=== PATIENT | male | born 1945 | race Caucasian/White ===

== ENCOUNTER → 2017-12-12 | Day surgery (SDC) | payer OTHER ==
[2017-12-08 11:09] VITALS: Ht 182.9 cm; Wt 118.2 kg
[~2017-12-12] VITALS: Ht 182.9 cm; Wt 118.2 kg
[~2017-12-12] MED LIST: AMLO-114 PO; ASPCH81X PO; ATOR-24 PO; ATROPINE SULFATE 0.1 MG/ML 5ML SYR IV PRN; CETI10TA84 PO; COEN100C7 PO; DEXAMETHASONE SOD INJ 4 MG/ML VIAL ONE; EpHEDrine SULFATE INJ 50 MG/ML AMP IV PRN; FENTANYL CITRATE INJ 50 MCG/1 ML 2 ML VIAL IV PRN; FENTANYL CITRATE INJ 50 MCG/1 ML 2 ML VIAL ONE; GLUCTAB7 PO; HYZ/10015 PO; INSDGI SC; KETOROLAC TROMETHAMINE 30 MG/ML VIAL ONE; LACTATED RINGER'S 1000ML 1,000 ML IV SCH; LIDOCAINE HCL 2% 2 ML VIAL (20MG/ML) ONE; MONT1TAB3 PO; NVLGI/PEN SC; OMEG10007 PO; ONDANSETRON INJ 2 MG/ML 2 ML VIAL IV PRN; ONDANSETRON INJ 2 MG/ML 2 ML VIAL ONE; OXYC-57 PO; PROPOFOL IV EMULSION 10 MG/ML 20 ML VIAL IV ONE; SEMA2INJ SC; TAMS0.4C38 PO; [UNRECOGNIZED DRUG - OTHER] PO
--- NOTE | 2017-12-12 07:56 | History and Physical: Surg Cnt ---
History & Physical Date Dec 12, 2017. Chief Complaint right kidney stone History of Present Illness The patient is a 72 year old male with right kidney stone. It is round 1mm diameter and in the renal pelvis. He has considered treatment options and selects stone treatment with right ESWL. Past Medical/Surgical History Medical Problems: (1) Diplopia (2) DM (diabetes mellitus) (3) HTN (hypertension) (4) Nephrolithiasis Additional History Hepatic Disease: No Endocrine Disorder: Yes (DM) Hypertension: Yes Heart Disease: Yes Bleeding Tendencies: No Infectious Diseases: No Allergies Coded Allergies: NO KNOWN DRUG ALLERGIES (Verified Allergy, Unknown, ., 12/12/17) Cat Dander (Verified Adverse Reaction, Mild, WATERY EYES, 12/12/17) Home Medications Scheduled Amlodipine (Norvasc), 10 MG PO QPM Aspirin (Aspirin Chewable), 81 MG PO QPM Atorvastatin (Lipitor), 40 MG PO QAM Cetirizine (Zyrtec), 10 MG PO QAM Coenzyme Q10 (Ubidecarenone) (Coq10), 1 CAP PO 3XWK Fish Oil ([place]-3), 1 CAP PO BID Wwnfwjptrim-Gquapuultqe-Nwt C- (Glucosamine Chondroitin), 2 TAB PO QPM Hctz/Losartan (Hyzaar 25MG/100MG), 1 TAB PO QAM Insulin Aspart (Novolog Flexpen), 1 DOSE SC TID Insulin Glargine (Lantus), 80 UNITS SC BID Semaglutide (Ozempic), 0.25 MG SC WK [Chromium Synergy], 1 CAP PO 3XWK Scheduled PRN Montelukast Sodium (Singulair), 10 MG PO DAILY PRN for PRN Physical Examination Skin: warm/dry Eyes: normal inspection Neck: trachea midline Respiratory/Chest: lungs clear, normal breath sounds, no respiratory distress Cardiovascular: regular rate, rhythm, no edema Extremities: normal inspection, + pertinent finding (no edema) Neurologic/Psych: alert, oriented x 3 Diagnosis right kidney stone ASA Classification: ASA Class III Plan of Treatment Plan right ESWL scds
--- NOTE | 2017-12-12 09:08 | [facility] Operative Report ---
Operative Report Operative Date Dec 12, 2017. Pre-Operative Diagnosis Right Renal Calculus Post-Operative Diagnosis Same Procedure(s) Performed Right Extracorporeal Shock Wave Lithotripsy Surgeon Dr. Unique Howard Pediatrician Surgeon(s) None Estimated Blood Loss 0 Findings radio-opaque 11mm round renal pelvis stone Fluids 600mL Specimens None Drains None Anesthesia Type General Complication(s) none Disposition yes Recovery Room / PACU Indications right renal pelvis stone growing over time. He opted for ESWL treatment Description of Procedure Patient was given general LMA anesthesia and was placed supine on the OR table. Using biplanar fluoro his 11mm right renal pelvis stone was positioned in the focal zone. We delivered 2500 shocks to the stone. We observed a 2 minute rest after the first 200 shocks. The stone appeared to broaden and lighten through the course of treatment. He tolerated procedure well and transferred to ercovery room in good condition. Plan: home today strain urine flomax daily oral pain meds as needed KUB in one month I attest to the content of the Intraoperative Record and any orders documented therein. Any exceptions are noted below.
--- NOTE | 2017-12-12 09:12 | Discharge Instructions ---
Discharge Instructions Date of Service Dec 12, 2017. Admission Reason for Admission: Right Kidney Stone Discharge Discharge Diagnosis / Problem: right kidney stone Discharge Goals Goal(s): Improve disease control Activity Recommendations Activity Limitations: resume your previous activity Lifting Limitations: none Exercise/Sports Limitations: as tolerated May Resume Sexual Activity: when tolerated Shower/Bathe: no limitations Driving or Machine Use: resume 1 day after discharge . Instructions / Follow-Up Instructions / Follow-Up strain urine until you collect a stone specimen for analysis take flomax daily for 2 weeks to ease stone fragment passage use ibuprofen for mild to moderate pain and narcotic for severe pain urine will be bloody for a few days We will check an x-ray in one month Current Hospital Diet Patient's current hospital diet: Discharge Diet Recommended Diet: Diabetes Type 2 Diet Fluid Restriction: None Procedures Procedures Performed: Right Extracorporeal Shock Wave Lithotripsy Pending Studies Studies pending at discharge: no Medical Emergencies . Who to Call and When: Medical Emergencies: If at any time you feel your situation is an emergency, please call 911 immediately. . Non-Emergent Contact Non-Emergency issues call your: Urologist ([phone] ) Call Non-Emergent contact if: temperature is above 100.5, your pain is not controlled . . "Provider Documentation" section prepared by Rhea Howard. . [place] Drug Monitoring Program Search Results: patient reviewed within database, no issues identified
[2017-12-12 10:03] VITALS: TEMP 36.3
--- NOTE | 2017-12-12 10:26 | Anesthesiology Progress Note ---
Anesthesia Post Op Note Date & Time Dec 12, 2017 at 10:26 Vital Signs Pain Intensity: 0 Vital Signs Past 12 Hours Date Time Temp Pulse Resp B/P (MAP) Pulse Ox O2 Delivery O2 Flow Rate FiO2 12/12/17 10:03 36.3 71 16 161/84 (109) 94 Room Air 12/12/17 09:55 68 15 137/67 94 12/12/17 09:55 36.4 71 12 137/67 96 Room Air 12/12/17 09:55 69 15 12/12/17 09:51 144/75 12/12/17 09:50 70 13 12/12/17 09:50 69 13 96 12/12/17 09:45 67 19 168/83 100 12/12/17 09:45 67 19 12/12/17 09:40 67 17 12/12/17 09:40 67 17 145/89 99 12/12/17 09:36 139/82 12/12/17 09:35 66 20 12/12/17 09:35 65 20 100 12/12/17 09:30 68 17 12/12/17 09:30 68 17 115/103 98 12/12/17 09:25 69 16 12/12/17 09:25 68 16 151/80 98 12/12/17 09:20 19 12/12/17 09:20 74 19 155/72 12/12/17 09:15 67 17 161/81 99 12/12/17 09:15 68 17 12/12/17 09:12 36.5 73 16 167/89 96 Mask 6 12/12/17 09:10 73 12/12/17 09:10 73 167/89 96 12/12/17 07:37 36.8 67 16 171/88 (115) 96 Room Air Notes Mental Status: alert / awake / arousable, participated in evaluation Pt Amnestic to Procedure: Yes Nausea / Vomiting: adequately controlled Pain: adequately controlled Airway Patency, RR, SpO2: stable & adequate BP & HR: stable & adequate Hydration State: stable & adequate Anesthetic Complications: no major complications apparent
[2017-12-12 10:35] VITALS: BP 148/83; PULSE 63; O2SAT 95
== END | disposition home or self-care (01) ==
LOC: X.SURG 07:00
PROVIDERS: ATTEND Urology
DX: N20.0 Calculus of kidney (principal); I10 Essential (primary) hypertension; E11.9 Type 2 diabetes mellitus without complications; G47.33 Obstructive sleep apnea (adult) (pediatric); M19.90 Unspecified osteoarthritis, unspecified site; Z79.4 Long term (current) use of insulin; Z79.82 Long term (current) use of aspirin; Z79.899 Other long term (current) drug therapy; Z85.46 Personal history of malignant neoplasm of prostate

== ENCOUNTER 2018-02-06 09:50 | Emergency (ER) | payer OTHER ==
[~2018-02-06] VITALS: Ht 182.9 cm; Wt 120.6 kg
[~2018-02-06 09:50] MED LIST changes: -ATROPINE SULFATE 0.1 MG/ML 5ML SYR IV PRN; -DEXAMETHASONE SOD INJ 4 MG/ML VIAL ONE; -EpHEDrine SULFATE INJ 50 MG/ML AMP IV PRN; -FENTANYL CITRATE INJ 50 MCG/1 ML 2 ML VIAL IV PRN; -FENTANYL CITRATE INJ 50 MCG/1 ML 2 ML VIAL ONE; -KETOROLAC TROMETHAMINE 30 MG/ML VIAL ONE; -LACTATED RINGER'S 1000ML 1,000 ML IV SCH; -LIDOCAINE HCL 2% 2 ML VIAL (20MG/ML) ONE; -ONDANSETRON INJ 2 MG/ML 2 ML VIAL IV PRN; -ONDANSETRON INJ 2 MG/ML 2 ML VIAL ONE; -PROPOFOL IV EMULSION 10 MG/ML 20 ML VIAL IV ONE; -SEMA2INJ SC; -TAMS0.4C38 PO
[2018-02-06 09:52] VITALS: TEMP 37.2; Ht 182.9 cm; Wt 120.6 kg
[2018-02-06] MEDS ORDERED: HYDROmorphone INJ 0.5 MG/0.5 ML SYR IV STA (10:05)
[2018-02-06] MEDS ORDERED: ONDANSETRON INJ 2 MG/ML 2 ML VIAL IV STA (10:05)
[2018-02-06] MEDS ORDERED: ACETAMINOPHEN 500 MG TAB PO STA (10:05)
[2018-02-06] MEDS ORDERED: KETOROLAC TROMETHAMINE 30 MG/ML VIAL IV STA (10:05)
--- NOTE | 2018-02-06 10:09 | EMERGENCY ROOM VISIT NOTE ---
History Report prepared by Rebeca: Willow Tamez Under the Supervision of: Dr. Tigre Barksdale M.D. First contact with patient: 09:58 Chief Complaint: KIDNEY STONE Stated Complaint: KIDNEY STONE History of Present Illness The patient is a 72 year old white male with a past medical history of Diplopia , DM, HTN, Nephrolithiasis who presents to the ED with a cc of worsening right sided flank pain due to a kidney stone beginning at 0300 this morning. Negative fevers, chills, or blood in his urine. He states he had a lithotripsy done at the end of November by Dr. Howard and she found an 11 mm kidney stone. He went to a follow up a appointment which found he had 15 to 18 small stones and he believes he has passed many of them. However, recently his right sided flank pain has been constant and he describes it as a pressure. He took 3 Aleve which alleviated his pain. The patient states he has been constipated for the past week. Source of History: patient Onset: 0300 this morning Position: other (right flank) Quality: pressure Timing: constant Modifying Factors (Relieving): other (Aleve) Associated Symptoms: No fevers, No chills, No urinary symptoms (blood in his urine) Review of Systems See HPI for pertinent positives and negatives. A total of ten systems were reviewed and were otherwise negative. Past Medical & Surgical Medical Problems: (1) Diplopia (2) DM (diabetes mellitus) (3) HTN (hypertension) (4) Nephrolithiasis Family History Patient reports no known family medical history. Social History Smoking Status: Never Smoker Smokeless Tobacco Use: No Alcohol Use: none Drug Use: none Marital Status: Housing Status: lives with family Occupation Status: retired Current/Historical Medications Scheduled Amlodipine (Norvasc), 10 MG PO QPM Aspirin (Aspirin Chewable), 81 MG PO QPM Atorvastatin (Lipitor), 40 MG PO QAM Cetirizine (Zyrtec), 10 MG PO QAM Fish Oil ([place]-3), 1 CAP PO BID Zhnmhgdrmvw-Rtglirozeow-Keo C- (Glucosamine Chondroitin), 2 TAB PO QPM Hctz/Losartan (Hyzaar 25MG/100MG), 1 TAB PO QAM Insulin Aspart (Novolog Flexpen), 1 DOSE SC TID Insulin Glargine (Lantus), 75 UNITS SC BID Sertraline (Zoloft), 25 MG PO DAILY Spironolactone (Spironolactone), 12.5 MG PO DAILY Tamsulosin HCl (Tamsulosin HCl), 1 CAP PO DAILY Tamsulosin Hcl (Flomax), 0.4 MG PO DAILY Scheduled PRN Montelukast Sodium (Singulair), 10 MG PO DAILY PRN for PRN Oxycodone Immediate Rel Tab (Roxicodone Ir), 5 MG PO Q6H PRN for Pain Allergies Coded Allergies: Avocado (Verified Allergy, Severe, "Throat closes up", 02/06/18) Physical Exam Vital Signs Date Time Temp Pulse Resp B/P (MAP) Pulse Ox O2 Delivery O2 Flow Rate FiO2 02/06/18 12:10 68 18 140/73 96 Room Air 02/06/18 10:59 73 18 138/68 95 Room Air 02/06/18 09:52 37.2 96 20 159/87 97 Room Air Physical Exam GENERAL: Awake, alert, well-appearing, NAD. Obese. HENT: Normocephalic, atraumatic. EYES: Normal conjunctiva. Sclera non-icteric. PERRL. No anisocoria. NECK: Supple. No nuchal rigidity. FROM. No CVA TTP. RESPIRATORY: CTAB, no rhonchi, wheezing, crackles CARDIAC: RRR, no MRG ABDOMEN: Soft, NTND, BS+ MSK: No chest wall TTP, no LE edema NEURO: GCS 15, CN 2-12 intact, moves all 4s on command SKIN: No rash or jaundice noted. Medical Decision & Procedures ER Provider Diagnostic Interpretation: Radiology results as stated below per my review and radiologist interpretation: KUB CLINICAL HISTORY: 72 years-old Male presenting with Flank pain, hematuria, history of kidney stones. TECHNIQUE: Single supine view of the abdomen was obtained. COMPARISON: CT from 09/22/2013. FINDINGS: Moderate stool burden in the right colon. Nonobstructive bowel gas pattern. No gross pneumoperitoneum. Multiple right renal calculi including a cluster at the lower pole less pronounced burden of calculi evident on the left. Possible proximal right ureteral calculus at the level of L3-4. No radiographic evidence of left ureteral calculus. Multiple calculi project over the region of the distal right ureter. These were not present on prior CT and are indeterminant, ureteral calculi are not excluded though atherosclerosis and phleboliths are also possible. Osseous structures normal. IMPRESSION: 1. Bilateral nephrolithiasis with a greater stone burden on the right. Suspected right ureteral calculus at the level of L3-4. Distal right ureteral calculi cannot be excluded. Further evaluation with CT to be considered as clinically appropriate. Electronically signed by: José Luis Roque M.D. 02/06/2018 11:02 AM Laboratory Results 02/06/18 10:05 Red Blood Count 4.32, Mean Corpuscular Volume 88.9, Mean Corpuscular Hemoglobin 31.9, Mean Corpuscular Hemoglobin Concent 35.9, Mean Platelet Volume 10.8, Neutrophils (%) (Auto) 70.0, Lymphocytes (%) (Auto) 21.7, Monocytes (%) (Auto) 6.0, Eosinophils (%) (Auto) 1.5, Basophils (%) (Auto) 0.5, Neutrophils # (Auto) 4.19, Lymphocytes # (Auto) 1.30, Monocytes # (Auto) 0.36, Eosinophils # (Auto) 0.09, Basophils # (Auto) 0.03 02/06/18 10:05 Test 02/06/18 10:05 02/06/18 10:15 White Blood Count 5.99 K/uL (4.8-10.8) Red Blood Count 4.32 M/uL (4.7-6.1) Hemoglobin 13.8 g/dL (14.0-18.0) Hematocrit 38.4 % (42-52) Mean Corpuscular Volume 88.9 fL (80-100) Mean Corpuscular Hemoglobin 31.9 pg (25-34) Mean Corpuscular Hemoglobin Concent 35.9 g/dl (32-36) Platelet Count 204 K/uL (130-400) Mean Platelet Volume 10.8 fL (7.4-10.4) Neutrophils (%) (Auto) 70.0 % Lymphocytes (%) (Auto) 21.7 % Monocytes (%) (Auto) 6.0 % Eosinophils (%) (Auto) 1.5 % Basophils (%) (Auto) 0.5 % Neutrophils # (Auto) 4.19 K/uL (1.4-6.5) Lymphocytes # (Auto) 1.30 K/uL (1.2-3.4) Monocytes # (Auto) 0.36 K/uL (0.11-0.59) Eosinophils # (Auto) 0.09 K/uL (0-0.5) Basophils # (Auto) 0.03 K/uL (0-0.2) RDW Standard Deviation 45.9 fL (36.4-46.3) RDW Coefficient of Variation 14.0 % (11.5-14.5) Immature Granulocyte % (Auto) 0.3 % Immature Granulocyte # (Auto) 0.02 K/uL (0.00-0.02) Anion Gap 7.0 mmol/L (3-11) Est Creatinine Clear Calc Drug Dose 50.6 ml/min Estimated GFR () 43.5 Estimated GFR (Non- 37.5 BUN/Creatinine Ratio 13.7 (10-20) Calcium Level 8.8 mg/dl (8.5-10.1) Chemistry Specimen Hemolysis Urine Color YELLOW Urine Appearance CLEAR (CLEAR) Urine pH 5.5 (4.5-7.5) Urine Specific [place] >= 1.030 (1.000-1.030) Urine Protein 2+ (NEG) Urine Glucose (UA) NEG (NEG) Urine Ketones NEG (NEG) Urine Occult Blood TRACE (NEG) Urine Nitrite NEG (NEG) Urine Bilirubin NEG (NEG) Urine Urobilinogen NEG (NEG) Urine Leukocyte Esterase NEG (NEG) Urine RBC 0-4 /hpf (0-4) Urine WBC 1-5 /hpf (0-5) Urine Epithelial Cells 5-10 /lpf (0-5) Urine Bacteria NEG (NEG) Urine Mucus PRESENT (NONE PRSENT) Laboratory results reviewed by me Medications Administered Medications (Trade) Dose Ordered Sig/Erlinda Route Start Time Stop Time Status Last Admin Dose Admin Ondansetron HCl (Zofran Inj) 4 mg NOW STAT IV 02/06/18 10:05 02/06/18 10:07 DC 02/06/18 10:22 4 MG Ketorolac Tromethamine (Toradol Inj) 30 mg NOW STAT IV 02/06/18 10:05 02/06/18 10:07 DC 02/06/18 10:24 30 MG Hydromorphone HCl (Dilaudid Inj) 0.5 mg NOW STAT IV 5/25/18 10:05 02/06/18 10:07 DC 02/06/18 10:25 0.5 MG Acetaminophen (Tylenol Tab) 1,000 mg NOW STAT PO 02/06/18 10:05 02/06/18 10:07 DC 02/06/18 10:26 1,000 MG ED Course 0958: The patient was evaluated in room B6. A complete history and physical exam was performed. 1111: I checked on the patient at this time. He is feeling better at this time. 1122: I talked to the OR nurse of Dr. Howard, Urology and she will pass along the message. 1155: Discussed the patient's case with Dr. Howard, Urology. She agrees with the plan of care and also agrees with adding Flomax. 1210: I reevaluated the patient. Discussed results and discharge instructions: He verbalized understanding and agreement. The patient is ready for discharge. Medical Decision The patient is a 72 year old white male with a past medical history of Diplopia , DM, HTN, Nephrolithiasis who presents to the ED with a cc of right sided flank pain due to a kidney stone beginning at 0300 this morning. Negative fevers , chills, or blood in his urine. Nursing notes reviewed. Ancillary studies and prior records reviewed. Differential diagnosis: Etiologies such as renal colic, appendicitis, diverticulitis, mesenteric ischemia, aortic pathology, infections, inflammatory bowel disease, PUD, biliary pathology, UTI, as well as others were entertained. Patient was seen and evaluated the bedside. Patient was complaining of worsening right-sided flank discomfort that radiates to the groin. Patient does have a prior history of a large kidney stone status post lithotripsy with [facility] completed back in November. Patient did have a follow-up and he stated that he had multiple small stones. Patient believes he has passed many. Patient did take some Aleve and some old oxycodone which he said did improve his discomfort. Patient denies any fevers chills. Patient is a questionable nausea but no vomiting. Patient did have blood work completed, KUB, urinalysis. Patient was given medications for symptom control. Patient's blood work showed normal white blood cell count. Patient does have some CKD which is fairly chronic as his most recent creatinine from several years ago was 1.6 today is 1.7. The patient's pain is much improved. No nausea no vomiting. The patient's KUB does show ureteral as well as nephrolithiasis. Patient was told of these findings. I did speak with the on- call urologist who agrees with the plan of care and tells them to try to pass these. Patient was given pain medication as well as Flomax for home. Patient was counseled on narcotics use. Patient was given strict follow-up, discharge, and return precautions. All questions were answered. Patient was deemed suitable for outpatient follow-up at this time. Patient agreed with the plan of care and was safely discharged home. Medication Reconcilliation Current Medication List: was personally reviewed by me Blood Pressure Screening Patient's blood pressure: Elevated blood pressure Blood pressure disposition: Elevated BP felt to be situational Consults Time Called: 1115 Consulting Physician: OR nurse of Dr. Howard Returned Call: 1122 I talked to the OR nurse of Dr. Howard and she will pass along the message. Additional Consults: Time Called: 1122 Consulted Physician: Dr. Howard, Urology Returned Call: 1155 Additional Comments: She agrees with the plan of care and also agrees with adding Flomax. Impression Primary Impression: Nephrolithiasis Additional Impressions: Renal colic Hypokalemia Right flank pain CKD (chronic kidney disease) stage 3, GFR 30-59 ml/min Scribe Attestation The scribe's documentation has been prepared under my direction and personally reviewed by me in its entirety. I confirm that the note above accurately reflects all work, treatment, procedures, and medical decision making performed by me. Departure Information Dispostion Home / Self-Care Prescriptions Oxycodone Immediate Rel Tab (ROXICODONE IR) 5 Mg Tab 5 MG PO Q6H Y for Pain, #15 TAB Prov: Tigre Barksdale M.D. 02/06/18 Tamsulosin Hcl (FLOMAX) 0.4 Mg Cap 0.4 MG PO DAILY for 30 Days, #30 CAP Prov: Tigre Barksdale M.D. 02/06/18 Referrals Elder Mirza M.D.(TASHIA) (PCP) Forms HOME CARE DOCUMENTATION FORM, IMPORTANT VISIT INFORMATION Patient Instructions Kidney Stones - [facility], Kidney Stones [facility], [facility] [place] Additional Instructions Please return to the emergency department if you have worsening or recurrent symptoms not amenable to at-home treatment. Please call for a follow-up appointment with her primary care physician. Please take your medications as prescribed. If you have other concerns and/or complaints please feel free to also call your primary care physician's office or return the ED for further evaluation, management, and treatment. You received narcotic or benzodiazepene medication while in the emergency room today. This is an addictive medication that may cause drowziness as well as constipation. Do not drive, operate heavy machinery, or drink alcohol under the influence of this medication. You may take tylenol 1000 mg every 6 hours as needed for pain/fever unless told by your physician to not take it or have liver problems. If you still have discomfort you may take the narcotic medication. Please be advised that these medications are habit forming, can make you sleepy, and can cause breathing issues. Do not use if you require your full attention. Take only as prescribed. Take your medications as prescribed. Please take your Flomax in the evening. Please call your urologist for a follow -up appointment. You have been examined and treated today on an emergency basis only. This is not a substitute for, or an effort to provide, complete comprehensive medical care. It is impossible to recognize and treat all injuries or illnesses in a single emergency department visit. It is therefore important that you follow up closely with [facility], your PCP, and/or your specialist(s). Call as soon as possible for an appointment. Thank you for your time and consideration. I look forward to speaking with you again soon. Please don't hesitate to call us if you have any questions. Problem Qualifiers
[2018-02-06 10:21] LABS: BASO % 0.5 %; BASO ABS # 0.03 K/uL (0-0.2); EOS % 1.5 %; EOS ABS # 0.09 K/uL (0-0.5); HEMATOCRIT 38.4 % (42-52); HEMOGLOBIN 13.8 g/dL (14.0-18.0); IG# 0.02 K/uL (0.00-0.02); LYMPH % 21.7 %; MEAN CELL VOLUME 88.9 fL (80-100); MEAN CORPUSCULAR HEMOGLOBIN 31.9 pg (25-34); MEAN CORPUSCULAR HGB CONC 35.9 g/dl (32-36); MEAN PLATELET VOLUME 10.8 fL (7.4-10.4); MONO ABS # 0.36 K/uL (0.11-0.59); NEUT ABS # 4.19 K/uL (1.4-6.5); PLATELET COUNT 204 K/uL (130-400); RED CELL DISTRIBUTION WIDTH SD 45.9 fL (36.4-46.3); WHITE BLOOD COUNT 5.99 K/uL (4.8-10.8)
[2018-02-06 10:39] LABS: CALCIUM 8.8 mg/dl (8.5-10.1); CREATININE 1.77 mg/dl (0.60-1.40); POTASSIUM 3.4 mmol/L (3.5-5.1)
[2018-02-06] MEDS ORDERED: SPR25 PO (10:48)
[2018-02-06] MEDS ORDERED: SERT25TA PO (10:48)
[2018-02-06] MEDS ORDERED: FLM4 PO (10:48)
--- NOTE | 2018-02-06 11:03 | DIAGNOSTIC IMAGING REPORT ---
KUB CLINICAL HISTORY: 72 years-old Male presenting with Flank pain, hematuria, history of kidney stones. TECHNIQUE: Single supine view of the abdomen was obtained. COMPARISON: CT from 09/22/2013. FINDINGS: Moderate stool burden in the right colon. Nonobstructive bowel gas pattern. No gross pneumoperitoneum. Multiple right renal calculi including a cluster at the lower pole less pronounced burden of calculi evident on the left. Possible proximal right ureteral calculus at the level of L3-4. No radiographic evidence of left ureteral calculus. Multiple calculi project over the region of the distal right ureter. These were not present on prior CT and are indeterminant, ureteral calculi are not excluded though atherosclerosis and phleboliths are also possible. Osseous structures normal. IMPRESSION: 1. Bilateral nephrolithiasis with a greater stone burden on the right. Suspected right ureteral calculus at the level of L3-4. Distal right ureteral calculi cannot be excluded. Further evaluation with CT to be considered as clinically appropriate. Electronically signed by: José Luis Roque M.D. 02/06/2018 11:02 AM Dictated Date/Time: 02/06/2018 10:58 AM
[2018-02-06] MEDS ORDERED: TAMS0.4C38 PO (12:09)
[2018-02-06] MEDS ORDERED: OXYC1TAB3 PO (12:09)
[2018-02-06 12:10] VITALS: BP 140/73; PULSE 68; O2SAT 96
[2018-02-08] MEDS ORDERED: SEMA2INJ SQ (13:07)
[2018-02-09] MEDS ORDERED: MRLP17X PO (13:45)
[2018-02-09] MEDS ORDERED: CLC100 PO (13:45)
== END 2018-02-06 12:23 | disposition home or self-care (01) ==
LOC: C.EDB 09:51
DX: N20.0 Calculus of kidney (principal); N23 Unspecified renal colic; E87.6 Hypokalemia; R10.9 Unspecified abdominal pain; N18.3 Chronic kidney disease, stage 3 (moderate); H53.2 Diplopia; E11.9 Type 2 diabetes mellitus without complications; I10 Essential (primary) hypertension; Z79.4 Long term (current) use of insulin; Z91.018 Allergy to other foods

== ENCOUNTER → 2018-04-09 | Outpatient (CLI) | payer OTHER ==
[~2018-04-09] MED LIST changes: -AMLO-114 PO; +AMLO10TA3 PO; -COEN100C7 PO; +FLM4 PO; +MULT-1093 PO; -OXYC-57 PO; +SEMA2INJ SQ; +SPIR25TA6 PO; -[UNRECOGNIZED DRUG - OTHER] PO
--- NOTE | 2018-04-09 14:54 | DIAGNOSTIC IMAGING REPORT ---
PELVIS WITHOUT CONTRAST (MRI) CLINICAL HISTORY: [facility] COMPARISON STUDY: CT of the abdomen and pelvis September 22, 2013. TECHNIQUE: Utilizing a 1.5 Shayna magnet and dedicated coil, multiplanar, multi echo imaging of the pelvis was performed without intravenous contrast. FINDINGS: Please note that this study was not performed to evaluate for the primary prostate carcinoma. Note is made of an apparent 1.4 cm T2 hypointense focus within the left lateral aspect of the peripheral zone at the level of the mid gland. The prostate is moderately enlarged with numerous well-circumscribed nodules within the transitional zone suggestive of BPH nodules. The hydrogel spacer is appropriately positioned. Thickness of the spacer at the level of the mid gland is 5 mm. The spacer is just to the right of midline but separates the rectum from the prostate gland most significantly at the level of the mid gland and base. No pelvic lymphadenopathy is identified. No suspicious osseous lesions are identified within visualized portions of the pelvis. IMPRESSION: 1. Appropriately positioned hydrogel spacer, as described above. 2. Moderate enlargement of the prostate gland. 3. Possible 1.4 cm T2 hypointense focus within the left aspect of the peripheral zone at the level the mid gland. This may reflect a prostate malignancy could be correlated with biopsy results. Electronically signed by: Dmitry Chi M.D. 04/09/2018 2:53 PM Dictated Date/Time: 04/09/2018 2:41 PM
--- NOTE | 2018-05-01 08:41 | CODING QUERY MEDICAL NECESSITY ---
SUPPORTING DIAGNOSIS NEEDED A supporting diagnosis is required for the test/procedure performed on this patient in order for us to be reimbursed by the patient's insurance. Please provide a supporting diagnosis for the following test/procedure listed below next to the test name along with your signature. *If there is no additional diagnosis for this patient that would support the following test/procedure please document that below next to the test/procedure. Test(s)/Procedure(s) that require a supporting diagnosis: DOS: 04/09/18 * PROSTATE MRI COMBO DIAGNOSIS: * MRI PELVIS WITHOUT CONTRAST DIAGNOSIS: Provider Signature: Date: Thank you Cassie Dupont [employer] Information Management Once completed, please kindly fax back to [phone] For questions please call [phone]
== END | disposition home or self-care (01) ==
LOC: C.MRIBC 13:21
PROVIDERS: ATTEND Physician Assistant Medical
DX: C61 Malignant neoplasm of prostate (principal)

== ENCOUNTER 2020-04-18 17:18 | Observation (INO) ==
[2020-04-18] MEDS ORDERED: PANTOprazole 80 MG in DEXTROSE 5% 100 ML IV ONE (17:35)
[2020-04-18] MEDS ORDERED: PANTOPRAZOLE BOLUS/DRIP 1 EA IV STA (17:35)
[2020-04-18] MEDS ORDERED: SODIUM CHLORIDE 0.9% 500 ML IV SCH (17:45)
[2020-04-18] MEDS ORDERED: PANTOprazole 40 MG in DEXTROSE 5% 100 ML IV SCH (17:51)
[2020-04-18 17:52] LABS: Basophils # (auto) 0.03 K/uL (0-0.2); Basophils % (auto) 0.4 %; Eosinophils # (auto) 0.17 K/uL (0-0.5); Eosinophils % (auto) 2.4 %; Hemoglobin 11.2 g/dL (14.0-18.0); Immature Granulocytes # (auto) 0.02 K/uL (0.00-0.02); Immature Granulocytes % (auto) 0.3 %; Lymphocytes # (auto) 0.69 K/uL (1.2-3.4); Lymphocytes % (auto) 9.6 %; Mean Corpuscular Hemoglobin 31.7 pg (25-34); Mean Corpuscular Hgb Conc 33.9 g/dL (32-36); Mean Corpuscular Volume 93.5 fL (80-100); Mean Platelet Volume 11.1 fL (7.4-10.4); Monocytes # (auto) 0.53 K/uL (0.11-0.59); Monocytes % (auto) 7.4 %; Neutrophils # (auto) 5.76 K/uL (1.4-6.5); Neutrophils % (auto) 79.9 %; Platelet Count 268 K/uL (130-400); RDW Coefficient of Variation 14.4 % (11.5-14.5); RDW Standard Deviation 48.6 fL (36.4-46.3); Red Blood Count 3.53 M/uL (4.7-6.1)
[2020-04-18 18:03] LABS: INR 1.1 (0.9-1.1); Partial Thromboplastin Time 28.4 Seconds (21.0-31.0); Prothrombin Time 11.1 Seconds (9.0-12.0)
[2020-04-18 18:17] LABS: Albumin Level 3.6 gm/dl (3.4-5.0); BUN Creatinine Ratio 14.7 (10-20); Creatinine Clr Calc Pharmacy 45.1 ml/min; Est GFR (African American) 40.1; Est GFR (Non-African American) 34.6; Potassium 4.5 mmol/L (3.5-5.1)
--- NOTE | 2020-04-18 18:25 | Emergency Department Note ---
Impression & Plan Rectal bleeding, Near syncope, Anemia ED Provider Note NAME: HILARY BACA AGE: 74 SEX: M : 1945 ARRIVES VIA: Walk-In INFORMANT: Patient, ED PROVIDER(S): Tigre Barksdale MD Chief Complaint: Rectal bleed HPI: States that he developed some rectal bleeding beginning last evening. The patient has had approximately 8 bouts today. The patient does take baby aspirin no blood thinning medications. The patient does have a prior history of likely radiation proctitis and did undergo an EGD and colonoscopy with the patient did have polypectomy and associated cauterization of some bleeding [address] Ariel Scherer. The patient does not complain of any abdominal pain nausea or vomiting. Patient denies symptoms of code including chest pain shortness of breath. The patient has had some mild weakness and fatigue. Patient reportedly had called his GI doctor who stated that the patient would se e him for a colonoscopy tomorrow but after further discussion with the patient's nurse hotline and they referred him here for further evaluation and treatment. No history of inflammatory bowel disease. Patient states that his polyps that were removed were not malignant. The patient had a likely radiation proctitis secondary to history of prostate cancer which the patient is currently in remission. ROS: See HPI for pertinent positives and negatives. A total of 10 systems were reviewed and otherwise negative. Past medical history: See below Surgical history: See below Social history: See below Physical Exam: GENERAL: Wearing a mask. NAD, non-toxic. EYE EXAM: Normal conjunctiva. PERRL, no anisocoria and EOM's grossly intact w/o pain. NECK: Supple, no nuchal rigidity, no adenopathy, non-tender. No signs of meningismus. LUNGS: Clear to auscultation. Normal chest wall mechanics. HEART: NSR, no MRG. ABDOMEN: Abdomen soft, non-tender, normo-active bowel sounds, no masses, no rebound or guarding. BACK: No CVA TTP. SKIN: No rashes and no bruising. UPPER EXTREMITIES: Upper extremities are grossly normal. LOWER EXTREMITIES: Grossly normal, no edema. NEURO EXAM: A&O x3, cranial nerves II-XII grossly intact, normal speech, moves all 4 extremities on command w/o issue. Differential diagnoses: Diverticulosis, AVM, coagulopathy, colitis, inflammatory bowel disease, malignancy, Amanda-Narvaez tear, esophagitis, peptic ulcer disease, variceal bleed, gastritis, epistaxis, fissure, hemorrhoids, as well as other pathologies. Course: Patient was seen and evaluated the bedside. Full history physical exam was performed. EKG: Indication: Fatigue Normal sinus rhythm, rate 83, normal intervals, normal axis, no obvious ST changes or T WI. No significant change from February 13, 2018. Imaging Studies: Radiology results as stated below per my review in the radiologist's interpretation: Cardiac monitoring: An order was placed for continuous cardiac monitoring. The monitor shows a rate of 98 with sinus rhythm. MDM: Patient does present with concern for rectal bleeding. Patient does have a mild drop in his hemoglobin from 12-11. The patient has virtually baseline kidney function. Clvms-ag-otmc glucose and glucose is slightly elevated but the patient does not have an anion gap. Patient did try and ambulate to the bathroom and had a near syncopal event. Given this and patient's current rectal bleeding believe the patient would benefit from observation and treatment and possible sigmoidoscopy versus colonoscopy in the morning. Patient family were agreeable to this plan of care. I did speak with Dr. Denise and the patient subsequently was admitted to the [facility] service. Past Med/Surg History Medical History DM (diabetes mellitus) (Chronic) HTN (hypertension) (Chronic) Nephrolithiasis (Chronic) Prostate cancer (Chronic 11/14/17) Social History Smoking Status: Never smoker Hx Alcohol Use: Yes Alcohol type: beer Hx Substance Use: No Preferred Language: Togolese Communication Ability: Effective Rehab Trainer Required: No Beliefs That Will Affect Care: None Current Living Situation: Family Other Information That Helps Us Care for You: No Feels Safe at Home: Yes Safety Concerns: Feels Safe At This Time Allergies Allergies Allergy/AdvReac Type Severity Reaction Status Date / Time avocado Allergy Severe "Throat Verified 04/18/20 20:20 closes up" cat dander Allergy Intermediate Sneezing Verified 04/18/20 20:20 Home Meds Home Medications Medication Instructions Recorded Confirmed amlodipine [Norvasc] 10 mg PO QPM 04/18/20 04/18/20 aspirin [Aspir-81] 81 mg PO QPM 04/18/20 04/18/20 atorvastatin [Lipitor] 40 mg PO QPM 04/18/20 04/18/20 cetirizine [Zyrtec] 5 mg PO DAILY 04/18/20 04/18/20 oppucttyjko-hbu-shivfzchg-vitC 1 cap PO QPM 04/18/20 04/18/20 [Glucosamine Complex-MSM] hydrochlorothiazide 25 mg PO QAM 04/18/20 04/18/20 insulin aspart U-100 [Novolog 20 unit SUBCUT .QBREAKFAST 04/18/20 04/18/20 Flexpen U-100 Insulin] insulin aspart U-100 [Novolog 25 unit SUBCUT BIDM 04/18/20 04/18/20 Flexpen U-100 Insulin] insulin glargine [Lantus U-100 80 unit SUBCUT QAM 04/18/20 04/18/20 Insulin] insulin glargine [Lantus U-100 90 unit SUBCUT QPM 04/18/20 04/18/20 Insulin] lisinopril 40 mg PO QAM 04/18/20 04/18/20 lorazepam [Ativan] 0.5 mg PO Q6 PRN 04/18/20 04/18/20 multivitamin 1 tab PO DAILY 04/18/20 04/18/20 omega 5-nkt-fil-fish oil [Fish Oil] 1 cap PO BID 04/18/20 04/18/20 spironolactone [Aldactone] 25 mg PO QPM 04/18/20 04/18/20 tamsulosin [Flomax] 0.4 mg PO QPM 04/18/20 04/18/20 venlafaxine 37.5 mg PO QPM 04/18/20 04/18/20 vitamin E 600 unit PO 3XWK 04/18/20 04/18/20 Results & Data (ED) Vital Signs Vital Signs - 24 hr 04/18/20 17:27 04/18/20 17:35 04/18/20 17:46 Temperature 37.3 C Temperature Source Oral Pulse Rate 98 H 85 Pulse Rate from SpO2 Sensor 86 Respiratory Rate 20 14 Blood Pressure 115/73 145/72 H Blood Pressure Mean 87 82 Pulse Oximetry 96 96 96 Oxygen Delivery Method Room Air Sepsis Recent Fever Within 48 Hours No Sepsis New/Unexplained Change in Mental Status No Sepsis Action Taken by Nursing No Action Required 04/18/20 18:30 04/18/20 19:04 04/18/20 19:15 Temperature Temperature Source Pulse Rate 83 64 62 Pulse Rate from SpO2 Sensor 82 64 64 Respiratory Rate 20 19 12 Blood Pressure 126/76 115/57 L 126/74 Blood Pressure Mean 92 70 86 Pulse Oximetry 94 96 94 Oxygen Delivery Method Sepsis Recent Fever Within 48 Hours Sepsis New/Unexplained Change in Mental Status Sepsis Action Taken by Nursing 04/18/20 19:30 04/18/20 19:45 04/18/20 20:00 Temperature Temperature Source Pulse Rate 63 66 71 Pulse Rate from SpO2 Sensor 65 67 74 Respiratory Rate 20 18 16 Blood Pressure 124/71 135/71 131/102 H Blood Pressure Mean 90 88 115 Pulse Oximetry 96 97 98 Oxygen Delivery Method Sepsis Recent Fever Within 48 Hours Sepsis New/Unexplained Change in Mental Status Sepsis Action Taken by Nursing 04/18/20 20:15 Temperature Temperature Source Pulse Rate 73 Pulse Rate from SpO2 Sensor 72 Respiratory Rate 19 Blood Pressure 142/81 H Blood Pressure Mean 94 Pulse Oximetry 97 Oxygen Delivery Method Sepsis Recent Fever Within 48 Hours Sepsis New/Unexplained Change in Mental Status Sepsis Action Taken by Correction Medications Current Medication List: was personally reviewed by me Laboratory Data Attestation: I reviewed the patient's lab results. Result diagrams: 04/18/20 17:42 04/18/20 17:42 Lab Results 04/18/20 04/18/20 04/18/20 Range/Units 17:42 17:42 17:42 WBC 7.20 (4.8-10.8) K/uL RBC 3.53 L (4.7-6.1) M/uL Hgb 11.2 L (14.0-18.0) g/dL Hct 33.0 L (42-52) % MCV 93.5 (80-100) fL MCH 31.7 (25-34) pg MCHC 33.9 (32-36) g/dL RDW Std Deviation 48.6 H (36.4-46.3) fL RDW Coeff of Richard 14.4 (11.5-14.5) % Plt Count 268 (130-400) K/uL MPV 11.1 H (7.4-10.4) fL Immature Gran % (Auto) 0.3 % Neut % (Auto) 79.9 % Lymph % (Auto) 9.6 % [place] % (Auto) 7.4 % Eos % (Auto) 2.4 % Baso % (Auto) 0.4 % Neut # (Auto) 5.76 (1.4-6.5) K/uL Lymph # (Auto) 0.69 L (1.2-3.4) K/uL [place] # (Auto) 0.53 (0.11-0.59) K/uL Eos # (Auto) 0.17 (0-0.5) K/uL Baso # (Auto) 0.03 (0-0.2) K/uL Immature Gran # (Auto) 0.02 (0.00-0.02) K/uL PT 11.1 (9.0-12.0) Seconds INR 1.1 (0.9-1.1) APTT 28.4 (21.0-31.0) Seconds PTT Ratio 1.0 Sodium (136-145) mmol/L Potassium (3.5-5.1) mmol/L Chloride (98-107) mmol/L Carbon Dioxide (21-32) mmol/L Anion Gap (3-11) BUN (7-18) mg/dl Creatinine (0.6-1.4) mg/dl Est Cr Clr Drug Dosing ml/min Est GFR ( Amer) Est GFR (Non-Af Amer) BUN/Creatinine Ratio (10-20) Glucose (70-99) mg/dl Calcium (8.5-10.1) mg/dl Magnesium (1.8-2.4) mg/dl Total Bilirubin (0.2-1) mg/dl AST (15-37) U/L ALT (12-78) U/L Alkaline Phosphatase (45-117) U/L Total Protein (6.4-8.2) gm/dl Albumin (3.4-5.0) gm/dl Globulin (2.5-4.0) gm/dl Albumin/Globulin Ratio (0.9-2) Blood Type A Positive Antibody Screen NEGATIVE 04/18/20 Range/Units 17:42 WBC (4.8-10.8) K/uL RBC (4.7-6.1) M/uL Hgb (14.0-18.0) g/dL Hct (42-52) % MCV (80-100) fL MCH (25-34) pg MCHC (32-36) g/dL RDW Std Deviation (36.4-46.3) fL RDW Coeff of Richard (11.5-14.5) % Plt Count (130-400) K/uL MPV (7.4-10.4) fL Immature Gran % (Auto) % Neut % (Auto) % Lymph % (Auto) % [place] % (Auto) % Eos % (Auto) % Baso % (Auto) % Neut # (Auto) (1.4-6.5) K/uL Lymph # (Auto) (1.2-3.4) K/uL [place] # (Auto) (0.11-0.59) K/uL Eos # (Auto) (0-0.5) K/uL Baso # (Auto) (0-0.2) K/uL Immature Gran # (Auto) (0.00-0.02) K/uL PT (9.0-12.0) Seconds INR (0.9-1.1) APTT (21.0-31.0) Seconds PTT Ratio Sodium 138 (136-145) mmol/L Potassium 4.5 (3.5-5.1) mmol/L Chloride 107 (98-107) mmol/L Carbon Dioxide 23 (21-32) mmol/L Anion Gap 8.0 (3-11) BUN 28 H (7-18) mg/dl Creatinine 1.87 H (0.6-1.4) mg/dl Est Cr Clr Drug Dosing 45.1 ml/min Est GFR ( Amer) 40.1 Est GFR (Non-Af Amer) 34.6 BUN/Creatinine Ratio 14.7 (10-20) Glucose 161 H (70-99) mg/dl Calcium 9.0 (8.5-10.1) mg/dl Magnesium 1.9 (1.8-2.4) mg/dl Total Bilirubin 0.5 (0.2-1) mg/dl AST 19 (15-37) U/L ALT 33 (12-78) U/L Alkaline Phosphatase 76 (45-117) U/L Total Protein 7.2 (6.4-8.2) gm/dl Albumin 3.6 (3.4-5.0) gm/dl Globulin 3.6 (2.5-4.0) gm/dl Albumin/Globulin Ratio 1.0 (0.9-2) Blood Type Antibody Screen Administered Medications Sodium Chloride (Nss) 500 mls @ 75 mls/hr IV .Q6H40M ONE Stop: 04/19/20 04:18 Last Admin: 04/18/20 21:55 Dose: 75 mls/hr Documented by: [id number] Insulin Aspart (Novolog Flexpen) 0 units SC ACHS MAMADOU Stop: 05/18/20 21:38 Last Admin: 04/18/20 22:11 Dose: Not Given Documented by: [id number] Cosigned by: [id number] Insulin Glargine (Lantus Solostar Pen) 5 units SC BID MAMADOU Stop: 05/18/20 21:38 Last Admin: 04/18/20 22:10 Dose: 5 units Documented by: [id number] Cosigned by: [id number] Discontinued Medications Sodium Chloride (Nss) 500 mls @ 999 mls/hr IV .Q31M MAMADOU Stop: 04/18/20 18:15 Last Infusion: 04/18/20 18:44 Dose: 0 mls/hr Documented by: [id number] Admin: 04/18/20 18:09 Dose: 999 mls/hr Documented by: [id number] Pantoprazole Sodium (Protonix Bolus/Drip) 0 mls @ 1 mls/hr IV ONE STA Stop: 04/18/20 17:36 Last Admin: 04/18/20 18:02 Dose: Not Given Documented by: [id number] Pantoprazole Sodium 40 mg/ (Dextrose) 100 mls @ 20 mls/hr IV Q5H MAMADOU Stop: 05/18/20 17:50 Last Infusion: 04/18/20 20:54 Dose: 0 mg/hr, 0 mls/hr Documented by: [id number] Infusion: 04/18/20 20:50 Dose: 0 mg/hr, 0 mls/hr Documented by: [id number] Admin: 04/18/20 18:30 Dose: 8 mg/hr, 20 mls/hr Documented by: [id number] Pantoprazole Sodium 80 mg/ (Dextrose) 120 mls @ 400 mls/hr IV NOW ONE Stop: 04/18/20 17:52 Last Infusion: 04/18/20 18:30 Dose: 0 mls/hr Documented by: [id number] Admin: 04/18/20 18:09 Dose: 400 mls/hr Documented by: [id number] Sodium Biphosphate/Sodium Phosphate (Fleet Enema) 132 ml CO HS ONE Stop: 04/18/20 21:40 Last Admin: 04/18/20 21:56 Dose: Not Given Documented by: [id number] Discharge Plan Visit Data *Final* Discharge Date/Time: 04/18/20 20:56 Chief Complaint: Rectal Bleed Stated Complaint: RECTAL BLEED ED Provider: Tigre Barksdale Discharge Problem: Rectal bleeding, Near syncope, Anemia Patient Disposition: Admitted As Inpatient Discharge Instructions Interventions: ED Discharge Assessment Last Done: 04/18/20 20:56 Discharge Problem: Anemia Qualifiers: Anemia type: unspecified type Qualified Code(s): D64.9 - Anemia, unspecified
[2020-04-18 18:42] LABS: Bilirubin,Total 0.5 mg/dl (0.2-1); Globulin 3.6 gm/dl (2.5-4.0); Total Protein 7.2 gm/dl (6.4-8.2)
[2020-04-18 19:38] LABS: Magnesium 1.9 mg/dl (1.8-2.4)
--- NOTE | 2020-04-18 20:09 | XRay Report ---
SINGLE VIEW CHEST CLINICAL HISTORY: Renal failure. FINDINGS: 2 AP, portable, upright chest radiographs are compared to study dated 02/13/2019. The cardiom ediastinal silhouette is unremarkable noting mild atherosclerotic calcification of the thoracic aorta . Chronic interstitial thickening is similar to previous. There is mild bibasilar scarring/atelectasi s. No airspace consolidation or large pleural effusion is identified. No pneumothorax is seen. The eric ny thorax is grossly intact. IMPRESSION: No active disease in the chest. ACT 112: Negative or not required by law. Electronically signed by: Alexsander Meadows M.D. 04/18/2020 8:07 PM
--- NOTE | 2020-04-18 20:24 | History & Physical Report ---
Date of Service April 18, 2020 Assessment & Plan (1) Acute lower GI bleeding: Painless L GIB history colonic polyps/diverticulosis/internal hemorrhoids/radiation proctitis, multiple rectal angiectasias sp APC. Rule out C. difficile Some degree of hemodynamic instability with hemoglobin drop from baseline and positive orthostatic vitals at the ER hypertension, BP on the lower side ARF on CRI, possibly from blood loss DM 2 insulin requiring, well-controlled as above recent outpatient hemoglobin A1c of 7.16 July 2019 prostate cancer status post radiation status post Lupron Rx, as per records OBS Medical telemetry Stool C. difficile DC home aspirin given recurrent rectal bleed episodes and lack of clinical indication for home Rx (no prior history of vascular disease) Serial H&H, transfuse PRBC if hemoglobin less than 7 and or for symptomatic anemia Baseline UA, monitor creatinine response to IVF, hold home NICOLA/diuretic until creatinine back to baseline Clear liquids for now RE possible endoscopy in a.m. Fleet enema regimen as per GI specialist outpatient instructions Basal insulin adjusted for clear liquid diet, ISS BG goal [id number], update hemoglobin A1c DVT prophylaxis. SCDs RE L GIB Full code Patient's requesting updates from providers. Ms. Dory Martinez, contact [phone]. Text document was generated using [email or web address] voice recognition software. It may contain grammatical or spelling errors. Kindly contact undersigned for clarification of any documentation item in question. History of Present Illness Chief Complaint: Rectal bleeding Primary Care Provider: Elder Mirza MD History obtained from patient, family, and records. Medical history significant for hypertension, DM 2 insulin requiring, CRI (baseline creatinine 1.5), chronic anemia (baseline hemoglobin 12-13), GERD, prostate cancer status post radiation status post Lupron Rx, history colonic polyps/diverticulosis/internal hemorrhoids/radiation proctitis, multiple rectal angiectasias sp APC. as per records. Last confinement January 2018 for right renal colic secondary to right obstructive uropathy status post stent placement. Patient underwent outpatient colonoscopy last 3 weeks ago for rectal bleeding. Diverticulosis, polyps, radiation proctitis, multiple rectal angiectasia, nonbleeding internal hemorrhoids was noted on endoscopy. Multiple polyps resected and angiectasia was treated with APC. EGD showed hiatal hernia. This morning patient noted loose stools and dark blood clot passage per rectum, episodes totaling 8 as per patient. No abdominal pain, no fever, no chills. No chest pain, no S OB. Some lightheadedness, dizziness. No hematemesis/coffee-ground emesis. Patient contacted [facility] GI specialist office who recommended outpatient flex sigmoidoscopy tomorrow without anesthesia. Clear liquids recommended and OTC Fleet enemas for tonight and tomorrow a.m. Patient later directed by specialist office to ER because of bleeding progression. Medical History as above Surgical History : Carpal tunnel surgery, urologic procedures, dental surgery, tonsillectomy, sinus surgery Family History : Heart disease Personal/Social history : Non-smoker, occasional EtOH intake, dealer card room Allergies Allergy/AdvReac Type Severity Reaction Status Date / Time avocado Allergy Severe "Throat Verified 04/18/20 20:20 closes up" cat dander Allergy Intermediate Sneezing Verified 04/18/20 20:20 Home Medications Home Medications Medication Instructions Recorded Confirmed Type amlodipine [Norvasc] 10 mg PO QPM 04/18/20 04/18/20 History aspirin [Aspir-81] 81 mg PO QPM 04/18/20 04/18/20 History atorvastatin [Lipitor] 40 mg PO QPM 04/18/20 04/18/20 History cetirizine [Zyrtec] 5 mg PO DAILY 04/18/20 04/18/20 History pewjzmkztya-kzi-ooblfsria-vitC 1 cap PO QPM 04/18/20 04/18/20 History [Glucosamine Complex-MSM] hydrochlorothiazide 25 mg PO QAM 04/18/20 04/18/20 History insulin aspart U-100 [Novolog 20 unit SUBCUT .QBREAKFAST 04/18/20 04/18/20 History Flexpen U-100 Insulin] insulin aspart U-100 [Novolog 25 unit SUBCUT BIDM 04/18/20 04/18/20 History Flexpen U-100 Insulin] insulin glargine [Lantus U-100 80 unit SUBCUT QAM 04/18/20 04/18/20 History Insulin] insulin glargine [Lantus U-100 90 unit SUBCUT QPM 04/18/20 04/18/20 History Insulin] lisinopril 40 mg PO QAM 04/18/20 04/18/20 History lorazepam [Ativan] 0.5 mg PO Q6 PRN 04/18/20 04/18/20 History multivitamin 1 tab PO DAILY 04/18/20 04/18/20 History omega 5-mmg-awh-fish oil [Fish Oil] 1 cap PO BID 04/18/20 04/18/20 History spironolactone [Aldactone] 25 mg PO QPM 04/18/20 04/18/20 History tamsulosin [Flomax] 0.4 mg PO QPM 04/18/20 04/18/20 History venlafaxine 37.5 mg PO QPM 04/18/20 04/18/20 History vitamin E 600 unit PO 3XWK 04/18/20 04/18/20 History Past Med/Surg History Medical History DM (diabetes mellitus) (Chronic) HTN (hypertension) (Chronic) Nephrolithiasis (Chronic) Prostate cancer (Chronic 11/14/17) Social History Smoking Status: Never smoker Hx Alcohol Use: Yes Alcohol type: beer Hx Substance Use: No Preferred Language: Wallisian Communication Ability: Effective Trim Machine Adjuster Required: No Beliefs That Will Affect Care: None Current Living Situation: Family Other Information That Helps Us Care for You: No Feels Safe at Home: Yes Safety Concerns: Feels Safe At This Time Review of Systems Review of Systems: As per HPI, all 10 systems reviewed, all other ROS negative Physical Exam Physical Exam: GENERAL: Comfortable, obese, slightly anxious, no respiratory distress SKIN: Pallor, warm HEENT: Pale palpebral conjunctivae, no ptosis, dry buccal mucosa NECK : Supple, short neck, no tenderness CHEST : CTA, no tenderness HEART : RRR, no obvious murmurs ABDOMEN: Some distention, nontender EXTREMITIES : No LE swelling, no LE tenderness, no other conspicuous deformities noted NEUROLOGIC : Coherent, no facial asymmetry, no other gross focality Results & Data Results & Data ([facility]) Vital Signs (Past 12 Hours) Vital Signs Temp Pulse Resp BP Pulse Ox 04/18/20 17:35 96 04/18/20 17:27 37.3 C 98 H 20 115/73 96 Laboratory Results Laboratory Results WBC 7.20 K/uL (4.8-10.8) 04/18/20 17:42 RBC 3.53 M/uL (4.7-6.1) L 04/18/20 17:42 Hgb 11.2 g/dL (14.0-18.0) L 04/18/20 17:42 Hct 33.0 % (42-52) L 04/18/20 17:42 MCV 93.5 fL (80-100) 04/18/20 17:42 MCH 31.7 pg (25-34) 04/18/20 17:42 MCHC 33.9 g/dL (32-36) 04/18/20 17:42 RDW Std Deviation 48.6 fL (36.4-46.3) H 04/18/20 17:42 RDW Coeff of Richard 14.4 % (11.5-14.5) 04/18/20 17:42 Plt Count 268 K/uL (130-400) 04/18/20 17:42 MPV 11.1 fL (7.4-10.4) H 04/18/20 17:42 Immature Gran % (Auto) 0.3 % 04/18/20 17:42 Neut % (Auto) 79.9 % 04/18/20 17:42 Lymph % (Auto) 9.6 % 04/18/20 17:42 [place] % (Auto) 7.4 % 04/18/20 17:42 Eos % (Auto) 2.4 % 04/18/20 17:42 Baso % (Auto) 0.4 % 04/18/20 17:42 Neut # (Auto) 5.76 K/uL (1.4-6.5) 04/18/20 17:42 Lymph # (Auto) 0.69 K/uL (1.2-3.4) L 04/18/20 17:42 [place] # (Auto) 0.53 K/uL (0.11-0.59) 04/18/20 17:42 Eos # (Auto) 0.17 K/uL (0-0.5) 04/18/20 17:42 Baso # (Auto) 0.03 K/uL (0-0.2) 04/18/20 17:42 Immature Gran # (Auto) 0.02 K/uL (0.00-0.02) 04/18/20 17:42 PT 11.1 Seconds (9.0-12.0) 04/18/20 17:42 INR 1.1 (0.9-1.1) 04/18/20 17:42 APTT 28.4 Seconds (21.0-31.0) 04/18/20 17:42 PTT Ratio 1.0 04/18/20 17:42 Sodium 138 mmol/L (136-145) 04/18/20 17:42 Potassium 4.5 mmol/L (3.5-5.1) 04/18/20 17:42 Chloride 107 mmol/L (98-107) 04/18/20 17:42 Carbon Dioxide 23 mmol/L (21-32) 04/18/20 17:42 Anion Gap 8.0 (3-11) 04/18/20 17:42 BUN 28 mg/dl (7-18) H 04/18/20 17:42 Creatinine 1.87 mg/dl (0.6-1.4) H 04/18/20 17:42 Est Cr Clr Drug Dosing 45.1 ml/min 04/18/20 17:42 Est GFR ( Amer) 40.1 04/18/20 17:42 Est GFR (Non-Af Amer) 34.6 04/18/20 17:42 BUN/Creatinine Ratio 14.7 (10-20) 04/18/20 17:42 Glucose 161 mg/dl (70-99) H 04/18/20 17:42 Calcium 9.0 mg/dl (8.5-10.1) 04/18/20 17:42 Magnesium 1.9 mg/dl (1.8-2.4) 04/18/20 17:42 Total Bilirubin 0.5 mg/dl (0.2-1) 04/18/20 17:42 AST 19 U/L (15-37) 04/18/20 17:42 ALT 33 U/L (12-78) 04/18/20 17:42 Alkaline Phosphatase 76 U/L (45-117) 04/18/20 17:42 Total Protein 7.2 gm/dl (6.4-8.2) 04/18/20 17:42 Albumin 3.6 gm/dl (3.4-5.0) 04/18/20 17:42 Globulin 3.6 gm/dl (2.5-4.0) 04/18/20 17:42 Albumin/Globulin Ratio 1.0 (0.9-2) 04/18/20 17:42 Blood Type A Positive 04/18/20 17:42 Antibody Screen NEGATIVE 04/18/20 17:42 Diagnostic Findings Chest x-ray : No active disease in the chest. EKG as per my interpretation : Rate 85, NSR, LAD, LAFB, no ischemia, low voltage Code Status & VTE Plan VTE Prophylaxis Plan VTE Prophylaxis will be ordered: Yes
[2020-04-18] MEDS ORDERED: SODIUM CHLORIDE 0.9% 500 ML IV ONE (21:39)
[2020-04-18] MEDS ORDERED: GLUCOSE 10 TABS/TUBE PO PRN (21:39)
[2020-04-18] MEDS ORDERED: GLUCOSE 40% GEL 15 GM TUBE PO PRN (21:39)
[2020-04-18] MEDS ORDERED: CARBOHYDRATES FOR HYPOGLYCEMIA PO PRN (21:39)
[2020-04-18] MEDS ORDERED: SOD PHOSPHATE/SOD BIPHOSPHATE ENEMA 132 ML BTL PR ONE (21:39)
[2020-04-18] MEDS ORDERED: ACETAMINOPHEN 325 MG TAB PO PRN (21:39)
[2020-04-18] MEDS ORDERED: GLUCAGON FOR INJ 1 MG VIAL SQ PRN (21:39)
[2020-04-18] MEDS ORDERED: PROMETHAZINE HCL 12.5 MG in SODIUM CHLORIDE 0.9% 50 ML IV PRN (21:39)
[2020-04-18] MEDS ORDERED: DEXTROSE 50% 50 ML SYRINGE IV PRN (21:39)
[2020-04-18] MEDS ORDERED: TRAMADOL HCL 50 MG TABLET PO PRN (21:39)
[2020-04-18] MEDS ORDERED: LORazepam 0.25 MG/0.5 ML VIAL IV PRN (21:39)
[2020-04-18] MEDS: INSULIN GLARGINE SOLOSTAR 100 UNITS/ML 3 ML PEN SC SCH (22:10)
[2020-04-18] MEDS: INSULIN ASPART 100 UNITS/ML 3 ML PEN SC SCH (22:11)
[2020-04-18 22:45] LABS: Hematocrit (blood only) 29.7 % (42-52); Hemoglobin 9.8 g/dL (14.0-18.0)
[2020-04-19] MEDS ORDERED: SODIUM CHLORIDE 0.9% 1000ML 1,000 ML IV ONE (05:52)
[2020-04-19 06:27] LABS: Basophils # (auto) 0.01 K/uL (0-0.2); Basophils % (auto) 0.1 %; Eosinophils # (auto) 0.08 K/uL (0-0.5); Eosinophils % (auto) 1.1 %; Hematocrit (blood only) 26.5 % (42-52); Hemoglobin 8.8 g/dL (14.0-18.0); Immature Granulocytes # (auto) 0.02 K/uL (0.00-0.02); Immature Granulocytes % (auto) 0.3 %; Lymphocytes # (auto) 0.84 K/uL (1.2-3.4); Lymphocytes % (auto) 11.9 %; Mean Corpuscular Hemoglobin 31.1 pg (25-34); Mean Corpuscular Hgb Conc 33.2 g/dL (32-36); Mean Corpuscular Volume 93.6 fL (80-100); Mean Platelet Volume 10.4 fL (7.4-10.4); Monocytes # (auto) 0.53 K/uL (0.11-0.59); Monocytes % (auto) 7.5 %; Neutrophils # (auto) 5.58 K/uL (1.4-6.5); Neutrophils % (auto) 79.1 %; Platelet Count 223 K/uL (130-400); RDW Coefficient of Variation 14.6 % (11.5-14.5); RDW Standard Deviation 49.6 fL (36.4-46.3); Red Blood Count 2.83 M/uL (4.7-6.1); White Blood Count 7.06 K/uL (4.8-10.8)
[2020-04-19 06:46] LABS: BUN Creatinine Ratio 15.3 (10-20); Calcium 8.1 mg/dl (8.5-10.1); Est GFR (African American) 47.7; Est GFR (Non-African American) 41.2; Potassium 4.1 mmol/L (3.5-5.1)
[2020-04-19] MEDS ORDERED: SOD PHOSPHATE/SOD BIPHOSPHATE ENEMA 132 ML BTL PR ONE (08:00)
--- NOTE | 2020-04-19 08:22 | Hospitalist Progress Note ---
Date of Service April 19, 2020 Assessment & Plan (1) Acute blood loss anemia: (2) Acute lower GI bleeding: Acute lower GI bleed C-scope from 03/28/20 showed one 10mm polyp at ileocecal, three 6mm polyps in ascending colon, three 6mm polyps in transverse colon all removed; sigmoid diverticulosis, radiation proctitis/multiple rectal angioectasis treated with APC, nonbleeding internal hemorrhoids. Pathology of polyps were tubular adenoma in transverse and ascending colonic polyps. Bleeding likely related to hemorrhoid/angioectasia with recent treatment. Acute blood loss anemia. Hb dropped from 11.2 on admission to 8.8 this AM. Continue to monitor and transfuse prn to keep Hb >7 GI consult NPO for possible procedure (3) Acute worsening of stage 3 chronic kidney disease: Acute kidney injury From Acute blood loss Cr was 1.87 on admission It was 1.66 in February 2019 and 1.5 in July 2019 (Epic) Improved today to 1.62 (4) HTN (hypertension): Normotensive Monitor BP for now Holding home lisinopril for now Continue amlodipine (5) DM (diabetes mellitus): HbA1c was 7.2 in 05/2019 Continue insulin per protocol Currently NPO for possible procedure (6) CARLEY (obstructive sleep apnea): Continue CPAP HS (7) DVT prophylaxis: SCD for now Admission and Anticipated Discharge Date Admission Date: April 18, 2020 Subjective Patient seen and examined Reports last bright red bloody BM or clots was overnight. Reported small dark stool after that Stated dizziness and diaphoresis have resolved Denied any chest pain, palpitations, SOB, MERIDA Review of Systems Constitutional: no fever, no chills and no fatigue Eyes: no problem reported Ear, Nose, Mouth, Throat: no problem reported Respiratory: no cough, no chest congestion, no dyspnea and no dyspnea on exertion Cardiovascular: no chest pain, no dyspnea at rest, no dyspnea on exertion, no palpitations and no lightheadedness Gastrointestinal: + blood in stools; no abdominal pain, no nausea, no vomiting and no hematemesis Genitourinary: no problem reported Neurologic: no unsteadiness, no falls and no generalized weakness Psychiatric: no problem reported Physical Exam Constitutional: + obese; no acute distress Eyes: + anicteric sclerae and PERRL Mild pallor ENMT: external ear and nose normal, oropharynx normal Respiratory: normal respiratory effort, lungs clear to auscultation Cardiovascular: RRR, no murmur, no edema Heart Sounds: normal S1 and normal S2 Extremities: no pedal edema Gastrointestinal (Abdomen): normal bowel sounds, soft, nontender, no hepatosplenomegaly Musculoskeletal: no cyanosis or clubbing, extremities motor strength 5/5 Neurologic: PERRL, EOMI, accommodation nl, no face palsy, no dysarthria Psychiatric: A+Ox3, euthymic affect Results & Data Results & Data ([facility]) Vital Signs (Past 12 Hours) Vital Signs Temp Pulse Pulse Resp BP BP Pulse Ox 04/19/20 07:14 71 04/19/20 07:12 37.2 C 68 20 135/64 97 04/19/20 04:00 36.9 C 65 20 122/67 97 04/19/20 03:21 85 04/18/20 23:00 37 C 68 20 131/76 98 04/18/20 21:41 37.1 C 93 H 18 119/57 L 99 04/18/20 20:43 83 19 100/49 L 100 04/18/20 20:41 77 20 129/71 97 Laboratory Results Laboratory Results - last 24 hr 04/18/20 04/18/20 04/18/20 17:42 17:42 17:42 WBC 7.20 RBC 3.53 L Hgb 11.2 L Hct 33.0 L MCV 93.5 MCH 31.7 MCHC 33.9 RDW Std Deviation 48.6 H RDW Coeff of Richard 14.4 Plt Count 268 MPV 11.1 H Immature Gran % (Auto) 0.3 Neut % (Auto) 79.9 Lymph % (Auto) 9.6 [place] % (Auto) 7.4 Eos % (Auto) 2.4 Baso % (Auto) 0.4 Neut # (Auto) 5.76 Lymph # (Auto) 0.69 L [place] # (Auto) 0.53 Eos # (Auto) 0.17 Baso # (Auto) 0.03 Immature Gran # (Auto) 0.02 PT 11.1 INR 1.1 APTT 28.4 PTT Ratio 1.0 Sodium Potassium Chloride Carbon Dioxide Anion Gap BUN Creatinine Est Cr Clr Drug Dosing Est GFR ( Amer) Est GFR (Non-Af Amer) BUN/Creatinine Ratio Glucose POC Glucose Lactate Calcium Magnesium Total Bilirubin AST ALT Alkaline Phosphatase Total Protein Albumin Globulin Albumin/Globulin Ratio Blood Type A Positive Antibody Screen NEGATIVE 04/18/20 04/18/20 04/18/20 17:42 21:41 22:37 WBC RBC Hgb 9.8 L Hct 29.7 L MCV MCH MCHC RDW Std Deviation RDW Coeff of Richard Plt Count MPV Immature Gran % (Auto) Neut % (Auto) Lymph % (Auto) [place] % (Auto) Eos % (Auto) Baso % (Auto) Neut # (Auto) Lymph # (Auto) [place] # (Auto) Eos # (Auto) Baso # (Auto) Immature Gran # (Auto) PT INR APTT PTT Ratio Sodium 138 Potassium 4.5 Chloride 107 Carbon Dioxide 23 Anion Gap 8.0 BUN 28 H Creatinine 1.87 H Est Cr Clr Drug Dosing 45.1 Est GFR ( Amer) 40.1 Est GFR (Non-Af Amer) 34.6 BUN/Creatinine Ratio 14.7 Glucose 161 H POC Glucose 162 H Lactate Calcium 9.0 Magnesium 1.9 Total Bilirubin 0.5 AST 19 ALT 33 Alkaline Phosphatase 76 Total Protein 7.2 Albumin 3.6 Globulin 3.6 Albumin/Globulin Ratio 1.0 Blood Type Antibody Screen 04/18/20 04/19/20 04/19/20 22:37 00:21 06:16 WBC 7.06 RBC 2.83 L Hgb 8.8 L Hct 26.5 L MCV 93.6 MCH 31.1 MCHC 33.2 RDW Std Deviation 49.6 H RDW Coeff of Richard 14.6 H Plt Count 223 MPV 10.4 Immature Gran % (Auto) 0.3 Neut % (Auto) 79.1 Lymph % (Auto) 11.9 [place] % (Auto) 7.5 Eos % (Auto) 1.1 Baso % (Auto) 0.1 Neut # (Auto) 5.58 Lymph # (Auto) 0.84 L [place] # (Auto) 0.53 Eos # (Auto) 0.08 Baso # (Auto) 0.01 Immature Gran # (Auto) 0.02 PT INR APTT PTT Ratio Sodium Potassium Chloride Carbon Dioxide Anion Gap BUN Creatinine Est Cr Clr Drug Dosing Est GFR ( Amer) Est GFR (Non-Af Amer) BUN/Creatinine Ratio Glucose POC Glucose 176 H Lactate 2.0 Calcium Magnesium Total Bilirubin AST ALT Alkaline Phosphatase Total Protein Albumin Globulin Albumin/Globulin Ratio Blood Type Antibody Screen 04/19/20 04/19/20 06:16 07:17 WBC RBC Hgb Hct MCV MCH MCHC RDW Std Deviation RDW Coeff of Richard Plt Count MPV Immature Gran % (Auto) Neut % (Auto) Lymph % (Auto) [place] % (Auto) Eos % (Auto) Baso % (Auto) Neut # (Auto) Lymph # (Auto) [place] # (Auto) Eos # (Auto) Baso # (Auto) Immature Gran # (Auto) PT INR APTT PTT Ratio Sodium 141 Potassium 4.1 Chloride 109 H Carbon Dioxide 24 Anion Gap 8.0 BUN 25 H Creatinine 1.62 H Est Cr Clr Drug Dosing 52.0 Est GFR ( Amer) 47.7 Est GFR (Non-Af Amer) 41.2 BUN/Creatinine Ratio 15.3 Glucose 94 POC Glucose 90 Lactate Calcium 8.1 L Magnesium Total Bilirubin AST ALT Alkaline Phosphatase Total Protein Albumin Globulin Albumin/Globulin Ratio Blood Type Antibody Screen
--- NOTE | 2020-04-19 08:28 | Gastrointestinal Consultation ---
Date of Consultation April 19, 2020 Assessment & Plan (1) Acute blood loss anemia: Rectal bleeding likely secondary to angioectasias/radiation proctitis. 1. May DC protonix drip as no evidence of an UGI bleed. 2. Clear liquids po. 3. Plan for colonoscopy tomorrow. Present on Admission?: Yes (2) Rectal bleeding: Present on Admission?: Yes Supervising Physician Co-Signing Physician Notes Attg Add: I interviewed and examined pt, reviewed chart and labs. Pt with known XRT proctitis, now admit with rectal bleeding. Plan cscopy tomorrow. History of Present Illness Reason for Consultation: LGI bleed Requesting Physician: Dr. Vega Attending Physician: Cira Nielsen MD History of Present Illness Mr. Irving Martinez is a 74 yr old male pt of Dr. Elder Mirza with a hx of HTN, DM2, CKD, chronic anemia (baseline 12-13), GERD, Prostate cancer S/P radiation, with hx of diverticulosis and radiation proctitis and multiple rectal angiectasias S/P APC. He presented to the ED yesterday after passing about 8 bloody BMs (dark red with clots). He just underwent OP EGD (small hiatal hernia) and Colonoscopy on 03/28/[address] Tilley with report as follows: - The examined portion of the ileum was normal. - One 10 mm polyp at the ileocecal valve, removed with a hot snare. Resected and retrieved. Clips (MR conditional) were placed. - Three 6 mm polyps in the ascending colon, removed with a cold snare. Resected and retrieved. Clip was placed. - Three 6 mm polyps in the transverse colon, removed with a cold snare. Resected and retrieved. - Diverticulosis in the sigmoid colon. - Radiation proctitis/ Multiple rectal angioectasias. Treated with argon plasma coagulation (APC). - Non-bleeding internal hemorrhoids. Hb on arrival was 11.2 and this morning is 8.8. BUN is 25, Cr. 1.62. His most recent BM was documented at 10PM last evening: dark red blood, loose, moderate size. He is aware he is awake alert oriented and hemodynamically stable. He is on a Protonix drip and being given a clear liquid diet.He denies abdominal pain. Allergies Allergy/AdvReac Type Severity Reaction Status Date / Time avocado Allergy Severe "Throat Verified 04/18/20 20:20 closes up" cat dander Allergy Intermediate Sneezing Verified 04/18/20 20:20 Home Medications Home Medications Medication Instructions Recorded Confirmed Type amlodipine [Norvasc] 10 mg PO QPM 04/18/20 04/18/20 History aspirin [Aspir-81] 81 mg PO QPM 04/18/20 04/18/20 History atorvastatin [Lipitor] 40 mg PO QPM 04/18/20 04/18/20 History cetirizine [Zyrtec] 5 mg PO DAILY 04/18/20 04/18/20 History hcoxbxkvdkz-dkz-ldjxgiuwt-vitC 1 cap PO QPM 04/18/20 04/18/20 History [Glucosamine Complex-MSM] hydrochlorothiazide 25 mg PO QAM 04/18/20 04/18/20 History insulin aspart U-100 [Novolog 20 unit SUBCUT .QBREAKFAST 04/18/20 04/18/20 History Flexpen U-100 Insulin] insulin aspart U-100 [Novolog 25 unit SUBCUT BIDM 04/18/20 04/18/20 History Flexpen U-100 Insulin] insulin glargine [Lantus U-100 80 unit SUBCUT QAM 04/18/20 04/18/20 History Insulin] insulin glargine [Lantus U-100 90 unit SUBCUT QPM 04/18/20 04/18/20 History Insulin] lisinopril 40 mg PO QAM 04/18/20 04/18/20 History lorazepam [Ativan] 0.5 mg PO Q6 PRN 04/18/20 04/18/20 History multivitamin 1 tab PO DAILY 04/18/20 04/18/20 History omega 4-rsn-rwq-fish oil [Fish Oil] 1 cap PO BID 04/18/20 04/18/20 History spironolactone [Aldactone] 25 mg PO QPM 04/18/20 04/18/20 History tamsulosin [Flomax] 0.4 mg PO QPM 04/18/20 04/18/20 History venlafaxine 37.5 mg PO QPM 04/18/20 04/18/20 History vitamin E 600 unit PO 3XWK 04/18/20 04/18/20 History Patient History Medical History DM (diabetes mellitus) (Chronic) HTN (hypertension) (Chronic) Nephrolithiasis (Chronic) Prostate cancer (Chronic 11/14/17) Social History Smoking Status: Never smoker Hx Alcohol Use: Yes Alcohol type: beer Hx Substance Use: No Preferred Language: [place] Communication Ability: Effective Clinical Team Lead Required: No Beliefs That Will Affect Care: None Current Living Situation: Family Other Information That Helps Us Care for You: No Feels Safe at Home: Yes Safety Concerns: Feels Safe At This Time Review of Systems Review of Systems: ROS: Gen: Denies weakness, fevers, weight loss Eyes: No eye redness, or pain, no recent vision changes Resp: No SOB, no cough Cardio: No palpitations/irregular beats, no chest pain GI: As per HPI, otherwise (-) : Denies pain on urination Skin: No jaundice, itching or new rashes Physical Exam Constitutional: WD/WN, vitals as above Eyes: PERRL, conjunctivae normal, anicteric sclerae ENMT: external ear and nose normal, oropharynx normal Neck: trachea midline, no thyromegaly Respiratory: normal respiratory effort, lungs clear to auscultation Cardiovascular: RRR, no murmur, no edema Gastrointestinal (Abdomen): normal bowel sounds, soft, nontender, no hepatosplenomegaly Skin: no rashes, warm and dry Neurologic: PERRL, EOMI, accommodation nl, no face palsy, no dysarthria Lymphatic: no cervical or axillary lymphadenopathy Results & Data ([facility]) Vital Signs (Past 12 Hours) Vital Signs Temp Pulse Pulse Resp BP BP Pulse Ox 04/19/20 07:14 71 04/19/20 07:12 37.2 C 68 20 135/64 97 04/19/20 04:00 36.9 C 65 20 122/67 97 04/19/20 03:21 85 04/18/20 23:00 37 C 68 20 131/76 98 04/18/20 21:41 37.1 C 93 H 18 119/57 L 99 04/18/20 20:43 83 19 100/49 L 100 04/18/20 20:41 77 20 129/71 97 Laboratory Results Hb 7, WBC 7, Hb 8.8, HCT 26, PLT 223, NA 141, K4.1, BUN 25, CR 1.62, glucose 90 Diagnostic Findings Chest x-ray without active disease Medications Administered He is on a Protonix drip
[2020-04-19] MEDS: INSULIN ASPART 100 UNITS/ML 3 ML PEN SC SCH ×4 (08:40→20:28)
[2020-04-19] MEDS: INSULIN GLARGINE SOLOSTAR 100 UNITS/ML 3 ML PEN SC SCH ×2 (08:42→20:24)
[2020-04-19] MEDS: CETIRIZINE HCL 10 MG TABLET PO SCH (08:43)
[2020-04-19] MEDS: MULTIVITAMIN TAB PO SCH (08:44)
--- NOTE | 2020-04-19 11:45 | Electrocardiogram Report ---
Test Reason : Blood Pressure : / mmHG Vent. Rate : 083 BPM Atrial Rate : 083 BPM P-R Int : 150 ms QRS Dur : 088 ms QT Int : 354 ms P-R-T Axes : 060 000 043 degrees QTc Int : 415 ms Normal sinus rhythm Normal ECG When compared with ECG of 13-FEB-2019 18:22, No significant change was found Confirmed by Francisco Willams ([id number]) on 04/19/2020 11:44:58 AM Referred By: Janie Tilley Confirmed By:Dustin Willams
[2020-04-19 12:11] LABS: Hematocrit (blood only) 26.2 % (42-52); Hemoglobin 8.8 g/dL (14.0-18.0)
[2020-04-19] MEDS ORDERED: LAVAGE SOLUTION 4000ML PO SCH (18:00)
[2020-04-19 18:22] LABS: Hematocrit (blood only) 24.8 % (42-52); Hemoglobin 8.3 g/dL (14.0-18.0)
[2020-04-19] MEDS ORDERED: VENLAFAXINE HCL 37.5 MG TAB PO SCH (21:00)
[2020-04-19] MEDS ORDERED: TAMSULOSIN HCL 0.4 MG CAP PO SCH (21:00)
[2020-04-19] MEDS ORDERED: ATORVASTATIN 40 MG TAB PO SCH (21:00)
[2020-04-19] MEDS ORDERED: AMLODIPINE BESYLATE 5 MG TAB PO SCH (21:00)
[2020-04-20 06:00] LABS: Appearance Urine Clear (Clear); Bilirubin Urine Negative (Negative); Blood Urine Negative (Negative); Color Urine Yellow; Glucose Urine UA Negative (Negative); Ketones Urine Negative (Negative); Leukocyte Esterase Urine Negative (Negative); Nitrite Urine Negative (Negative); Protein Urine Negative (Negative); Specific Gravity Urine 1.013 (1.000-1.030); Urobilinogen Urine Negative (Negative); pH Urine 6.5 (4.5-7.5)
[2020-04-20 06:36] LABS: Hematocrit (blood only) 24.1 % (42-52); Hemoglobin 8.3 g/dL (14.0-18.0); Mean Corpuscular Hemoglobin 32.2 pg (25-34); Mean Corpuscular Hgb Conc 34.4 g/dL (32-36); Mean Corpuscular Volume 93.4 fL (80-100); Mean Platelet Volume 10.9 fL (7.4-10.4); Platelet Count 214 K/uL (130-400); RDW Coefficient of Variation 14.8 % (11.5-14.5); RDW Standard Deviation 50.2 fL (36.4-46.3); Red Blood Count 2.58 M/uL (4.7-6.1); White Blood Count 6.18 K/uL (4.8-10.8)
[2020-04-20 07:02] LABS: BUN Creatinine Ratio 12.3 (10-20); Calcium 8.4 mg/dl (8.5-10.1); Est GFR (African American) 54.6; Est GFR (Non-African American) 47.1
[2020-04-20] MEDS: INSULIN GLARGINE SOLOSTAR 100 UNITS/ML 3 ML PEN SC SCH (08:55)
[2020-04-20] MEDS: INSULIN ASPART 100 UNITS/ML 3 ML PEN SC SCH (08:56)
--- NOTE | 2020-04-20 10:23 | Hospitalist Progress Note ---
Date of Service April 20, 2020 Assessment & Plan (1) Acute blood loss anemia: (2) Acute lower GI bleeding: Acute lower GI bleed C-scope from 03/28/20 showed one 10mm polyp at ileocecal, three 6mm polyps in ascending colon, three 6mm polyps in transverse colon all removed; sigmoid diverticulosis, radiation proctitis/multiple rectal angioectasis treated with APC, nonbleeding internal hemorrhoids. Pathology of polyps were tubular adenoma in transverse and ascending colonic polyps. Bleeding likely related to hemorrhoid/angioectasia with recent treatment. Acute blood loss anemia. Hb dropped from 11.2 on admission to 8.8 Hb has been stable in 8s Continue to monitor and transfuse prn to keep Hb >7 GI on board Planned for colonoscopy today (3) Acute worsening of stage 3 chronic kidney disease: Acute kidney injury From Acute blood loss Cr was 1.87 on admission It was 1.66 in February 2019 and 1.5 in July 2019 (Epic) ERVIN resolved. Cr is 1.45 today (4) HTN (hypertension): Normotensive Monitor BP for now Holding home lisinopril for now. Plan to resume on discharge Continue amlodipine (5) DM (diabetes mellitus): HbA1c was 7.2 in 05/2019 Continue insulin per protocol Currently NPO for possible procedure (6) CARLEY (obstructive sleep apnea): Continue CPAP HS (7) DVT prophylaxis: SCD for now Admission and Anticipated Discharge Date Admission Date: April 18, 2020 Subjective Patient seen and examined Reported last bowel movement was brownish mixed with some blood Denied any abd pain, nausea, vomiting, hematemesis Denied any chest pain, SOB, MERIDA, dizziness, palpitations Denied any fevers, chills Physical Exam Constitutional: + obese; no acute distress Eyes: + anicteric sclerae and PERRL ENMT: external ear and nose normal, oropharynx normal Respiratory: normal respiratory effort, lungs clear to auscultation Cardiovascular: RRR, no murmur, no edema Heart Sounds: normal S1 and normal S2 Extremities: no pedal edema Gastrointestinal (Abdomen): normal bowel sounds, soft, nontender, no hepatosplenomegaly Musculoskeletal: no cyanosis or clubbing, extremities motor strength 5/5 Neurologic: PERRL, EOMI, accommodation nl, no face palsy, no dysarthria Psychiatric: A+Ox3, euthymic affect Results & Data Results & Data ([facility]) Vital Signs (Past 12 Hours) Vital Signs Temp Pulse Pulse Resp BP Pulse Ox 04/20/20 07:25 69 04/20/20 07:13 37.0 C 72 20 140/77 97 04/20/20 03:15 87 19 97 04/20/20 02:53 36.4 C L 74 20 131/69 97 04/20/20 00:56 69 04/19/20 23:37 37.0 C 84 20 134/74 99 Laboratory Results Laboratory Results - last 24 hr 04/19/20 04/19/20 04/19/20 11:30 11:58 16:47 WBC RBC Hgb 8.8 L Hct 26.2 L MCV MCH MCHC RDW Std Deviation RDW Coeff of Richard Plt Count MPV Sodium Potassium Chloride Carbon Dioxide Anion Gap BUN Creatinine Est Cr Clr Drug Dosing Est GFR ( Amer) Est GFR (Non-Af Amer) BUN/Creatinine Ratio Glucose POC Glucose 147 H 138 H Calcium Urine Color Urine Appearance Urine pH Ur Specific Loop Urine Protein Urine Glucose (UA) Urine Ketones Urine Blood Urine Nitrite Urine Bilirubin Urine Urobilinogen Ur Leukocyte Esterase 04/19/20 04/19/20 04/20/20 18:13 20:28 05:38 WBC 6.18 RBC 2.58 L Hgb 8.3 L 8.3 L Hct 24.8 L 24.1 L MCV 93.4 MCH 32.2 MCHC 34.4 RDW Std Deviation 50.2 H RDW Coeff of Richard 14.8 H Plt Count 214 MPV 10.9 H Sodium Potassium Chloride Carbon Dioxide Anion Gap BUN Creatinine Est Cr Clr Drug Dosing Est GFR ( Amer) Est GFR (Non-Af Amer) BUN/Creatinine Ratio Glucose POC Glucose 173 H Calcium Urine Color Urine Appearance Urine pH Ur Specific Loop Urine Protein Urine Glucose (UA) Urine Ketones Urine Blood Urine Nitrite Urine Bilirubin Urine Urobilinogen Ur Leukocyte Esterase 04/20/20 04/20/20 04/20/20 05:38 05:45 07:35 WBC RBC Hgb Hct MCV MCH MCHC RDW Std Deviation RDW Coeff of Richard Plt Count MPV Sodium 137 Potassium 4.0 Chloride 106 Carbon Dioxide 26 Anion Gap 6.0 BUN 18 Creatinine 1.45 H Est Cr Clr Drug Dosing 58.0 Est GFR ( Amer) 54.6 Est GFR (Non-Af Amer) 47.1 BUN/Creatinine Ratio 12.3 Glucose 164 H POC Glucose 210 H Calcium 8.4 L Urine Color Yellow Urine Appearance Clear Urine pH 6.[address] 1.013 Urine Protein Negative Urine Glucose (UA) Negative Urine Ketones Negative Urine Blood Negative Urine Nitrite Negative Urine Bilirubin Negative Urine Urobilinogen Negative Ur Leukocyte Esterase Negative
[2020-04-20 12:13] VITALS: TEMP 98.8
--- NOTE | 2020-04-20 12:21 | Anesthesiology Consultation ---
Date of Service April 20, 2020 Assessment & Plan Chart Review Chart Review: Acceptable Risk for Surgery and Patient NOT seen in Pre Admission Testing Consults Requested none ASA ASA4 Proposed Anesthesia Anesthesia Type: MAC Risk / Benefits Reviewed With: PT / POA / Parent / Guardian, Accepts Plan and Informed Consent Obtained Additional Comments: no covid test History Surgery Operation Date: 04/20/20 16:00 Proposed Procedures p Colonoscopy Dr Ruba Yeh Height/Weight Height: 6 ft Weight: 112.9 kg Allergies Allergy/AdvReac Type Severity Reaction Status Date / Time avocado Allergy Severe "Throat Verified 04/20/20 12:06 closes up" cat dander Allergy Intermediate Sneezing Verified 04/20/20 12:06 Medications Home Medications Medication Instructions Recorded Confirmed Last Taken amlodipine [Norvasc] 10 mg PO QPM 04/18/20 04/18/20 04/17/20 aspirin [Aspir-81] 81 mg PO QPM 04/18/20 04/18/20 04/17/20 atorvastatin [Lipitor] 40 mg PO QPM 04/18/20 04/18/20 04/17/20 cetirizine [Zyrtec] 5 mg PO DAILY 04/18/20 04/18/20 Unknown tpqzkkaswlp-rev-nwbfemjwt-vitC 1 cap PO QPM 04/18/20 04/18/20 Unknown [Glucosamine Complex-MSM] hydrochlorothiazide 25 mg PO QAM 04/18/20 04/18/20 04/17/20 insulin aspart U-100 [Novolog 20 unit SUBCUT .QBREAKFAST 04/18/20 04/18/20 Unknown Flexpen U-100 Insulin] insulin aspart U-100 [Novolog 25 unit SUBCUT BIDM 04/18/20 04/18/20 Unknown Flexpen U-100 Insulin] insulin glargine [Lantus U-100 80 unit SUBCUT QAM 04/18/20 04/18/20 04/18/20 10:00 Insulin] insulin glargine [Lantus U-100 90 unit SUBCUT QPM 04/18/20 04/18/20 04/17/20 Insulin] lisinopril 40 mg PO QAM 04/18/20 04/18/20 04/17/20 lorazepam [Ativan] 0.5 mg PO Q6 PRN 04/18/20 04/18/20 Unknown multivitamin 1 tab PO DAILY 04/18/20 04/18/20 Unknown omega 8-hyo-jqv-fish oil [Fish Oil] 1 cap PO BID 04/18/20 04/18/20 Unknown spironolactone [Aldactone] 25 mg PO QPM 04/18/20 04/18/20 04/17/20 tamsulosin [Flomax] 0.4 mg PO QPM 04/18/20 04/18/20 04/17/20 venlafaxine 37.5 mg PO QPM 04/18/20 04/18/20 04/17/20 vitamin E 600 unit PO 3XWK 04/18/20 04/18/20 Unknown Active Medications Generic Name Dose Route Start Last Admin Trade Name Freq PRN Reason Stop Dose Admin Amlodipine Besylate 10 mg 04/19/20 21:00 04/19/20 20:24 Norvasc PO 05/19/20 20:59 10 mg QPM MAMADOU Administration Atorvastatin Calcium 40 mg 04/19/20 21:00 04/19/20 20:24 Lipitor PO 05/19/20 20:59 40 mg QPM MAMADOU Administration Cetirizine HCl 5 mg 04/19/20 09:00 04/19/20 08:43 Zyrtec PO 05/19/20 08:59 5 mg DAILY MAMADOU Administration Insulin Aspart 0 units 04/18/20 21:39 04/20/20 08:56 Novolog Flexpen SC 05/18/20 21:38 Not Given ACHS MAMADOU Insulin Glargine 5 units 04/18/20 21:39 04/20/20 08:55 Lantus Solostar Pen SC 05/18/20 21:38 5 units BID MAMADOU Administration Multivitamins 1 tab 04/19/20 09:00 04/19/20 08:44 Multivitamin Tab PO 05/19/20 08:59 1 tab DAILY MAMADOU Administration Tamsulosin HCl 0.4 mg 04/19/20 21:00 04/19/20 20:24 Flomax PO 05/19/20 20:59 0.4 mg QPM MAMADOU Administration Venlafaxine HCl 37.5 mg 04/19/20 21:00 04/19/20 20:24 Effexor PO 05/19/20 20:59 37.5 mg QPM MAMADOU Administration NPO Date Last Intake of Fluids: 04/19/20 Time Last Intake of Fluids: 21:00 Date Last Intake of Solids: 04/18/20 Time Last Intake of Solids: 12:00 Past Medical History Medical History DM (diabetes mellitus) (Chronic) HTN (hypertension) (Chronic) Nephrolithiasis (Chronic) Prostate cancer (Chronic 11/14/17) Exercise / Class Metabolic Activity III < 4 Walking/Shop/Light housework Past Anesthesia History No Hx of Anesthesia Complications and No Family Hx of Anesthesia Complications History of PONV No Hx of PONV and No Hx of Motion Sickness Social History Smoking Status: Never smoker Hx Alcohol Use: Yes Alcohol type: beer alcohol intake frequency: holidays/special occasions only Hx Substance Use: No Physical Exam Vital Signs Last Vital Signs Temp 37.1 C 04/20/20 12:07 Pulse 71 04/20/20 12:07 Resp 18 04/20/20 12:07 BP 161/84 H 04/20/20 12:07 Pulse Ox 98 04/20/20 12:07 ENMT Mouth: no dentition abnormality Thyromental Distance: > or= 3.5 Finger Breadths Mallampati Class: III Neck normal visual inspection, trachea midline and + facial hair; neck extension not limited Respiratory normal respiratory effort Auscultation: lungs clear to auscultation bilaterally Cardiovascular Rate/Rhythm: regular rate and regular rhythm Heart Sounds: no murmur Vessels: no carotid bruit Musculoskeletal Spine: normal cervical ROM Extremities: extremities normal to inspection Neurologic moves all extremities Motor/Sensory: no sensory deficit Psychiatric Orientation: alert and oriented x 3 Testing Laboratory Results 04/20/20 05:38 04/20/20 05:38 PT 11.1 Seconds (9.0-12.0) 04/18/20 17:42 INR 1.1 (0.9-1.1) 04/18/20 17:42 APTT 28.4 Seconds (21.0-31.0) 04/18/20 17:42 Urine Color Yellow 04/20/20 05:45 Urine Appearance Clear (Clear) 04/20/20 05:45 Urine pH 6.5 (4.5-7.5) 04/20/20 05:45 Ur Specific [place] 1.013 (1.000-1.030) 04/20/20 05:45 Urine Protein Negative (Negative) 04/20/20 05:45 Urine Glucose (UA) Negative (Negative) 04/20/20 05:45 Urine Ketones Negative (Negative) 04/20/20 05:45 Urine Nitrite Negative (Negative) 04/20/20 05:45 Ur Leukocyte Esterase Negative (Negative) 04/20/20 05:45 Blood Type A Positive 04/18/20 17:42 Antibody Screen NEGATIVE 04/18/20 17:42 04/20/20 04/20/20 11:32 07:35 POC Glucose 241 H 210 H Electrocardiogram Date: 04/18/20 Findings: + NSR @ (at 83) Chest X-Ray Date: 04/18/20 Findings: + NAD and + atherosclerosis of thoracic aorta
[2020-04-20] MEDS ORDERED: ATROPINE SULFATE 0.1 MG/ML 10ML SYR IV PRN (12:23)
[2020-04-20] MEDS ORDERED: ePHEDrine sulfate 50 MG/ML AMP IV PRN (12:23)
--- NOTE | 2020-04-20 12:24 | History & Physical Report ---
Date of Service April 20, 2020 History of Present Illness Primary Care Provider: Elder Mirza MD Exam unchanged. 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 Csocpy, likely APC Allergies Allergy/AdvReac Type Severity Reaction Status Date / Time avocado Allergy Severe "Throat Verified 04/20/20 12:06 closes up" cat dander Allergy Intermediate Sneezing Verified 04/20/20 12:06 Home Medications Home Medications Medication Instructions Recorded Confirmed Type amlodipine [Norvasc] 10 mg PO QPM 04/18/20 04/18/20 History aspirin [Aspir-81] 81 mg PO QPM 04/18/20 04/18/20 History atorvastatin [Lipitor] 40 mg PO QPM 04/18/20 04/18/20 History cetirizine [Zyrtec] 5 mg PO DAILY 04/18/20 04/18/20 History ieyqdmbczfq-swz-xnktqzrrm-vitC 1 cap PO QPM 04/18/20 04/18/20 History [Glucosamine Complex-MSM] hydrochlorothiazide 25 mg PO QAM 04/18/20 04/18/20 History insulin aspart U-100 [Novolog 20 unit SUBCUT .QBREAKFAST 04/18/20 04/18/20 History Flexpen U-100 Insulin] insulin aspart U-100 [Novolog 25 unit SUBCUT BIDM 04/18/20 04/18/20 History Flexpen U-100 Insulin] insulin glargine [Lantus U-100 80 unit SUBCUT QAM 04/18/20 04/18/20 History Insulin] insulin glargine [Lantus U-100 90 unit SUBCUT QPM 04/18/20 04/18/20 History Insulin] lisinopril 40 mg PO QAM 04/18/20 04/18/20 History lorazepam [Ativan] 0.5 mg PO Q6 PRN 04/18/20 04/18/20 History multivitamin 1 tab PO DAILY 04/18/20 04/18/20 History omega 6-kwx-ncv-fish oil [Fish Oil] 1 cap PO BID 04/18/20 04/18/20 History spironolactone [Aldactone] 25 mg PO QPM 04/18/20 04/18/20 History tamsulosin [Flomax] 0.4 mg PO QPM 04/18/20 04/18/20 History venlafaxine 37.5 mg PO QPM 04/18/20 04/18/20 History vitamin E 600 unit PO 3XWK 04/18/20 04/18/20 History Past Med/Surg History Medical History DM (diabetes mellitus) (Chronic) HTN (hypertension) (Chronic) Nephrolithiasis (Chronic) Prostate cancer (Chronic 11/14/17) Social History Smoking Status: Never smoker Hx Alcohol Use: Yes Alcohol type: beer Hx Substance Use: No Preferred Language: [place] Communication Ability: Effective Talent Development Director Required: No Beliefs That Will Affect Care: None Current Living Situation: Family Other Information That Helps Us Care for You: No Feels Safe at Home: Yes Safety Concerns: Feels Safe At This Time Results & Data Vital Signs (Past 12 Hours) Vital Signs Temp Pulse Pulse Resp BP BP Pulse Ox 04/20/20 12:07 37.1 C 71 18 161/84 H 98 04/20/20 11:25 36.9 C 79 18 146/80 H 98 04/20/20 07:25 69 04/20/20 07:13 37.0 C 72 20 140/77 97 04/20/20 03:15 87 19 97 04/20/20 02:53 36.4 C L 74 20 131/69 97 04/20/20 00:56 69 Code Status & VTE Plan VTE Prophylaxis Plan VTE Prophylaxis will be ordered: Yes
--- NOTE | 2020-04-20 12:37 | History & Physical Report ---
Date of Service April 20, 2020 History of Present Illness Primary Care Provider: Elder Mirza MD No further bleeding overnight. Exam unchanged from yesterday. Plan csocpy today. Allergies Allergy/AdvReac Type Severity Reaction Status Date / Time avocado Allergy Severe "Throat Verified 04/20/20 12:06 closes up" cat dander Allergy Intermediate Sneezing Verified 04/20/20 12:06 Home Medications Home Medications Medication Instructions Recorded Confirmed Type amlodipine [Norvasc] 10 mg PO QPM 04/18/20 04/18/20 History aspirin [Aspir-81] 81 mg PO QPM 04/18/20 04/18/20 History atorvastatin [Lipitor] 40 mg PO QPM 04/18/20 04/18/20 History cetirizine [Zyrtec] 5 mg PO DAILY 04/18/20 04/18/20 History qytsowljcaz-jjo-rhmmkwovt-vitC 1 cap PO QPM 04/18/20 04/18/20 History [Glucosamine Complex-MSM] hydrochlorothiazide 25 mg PO QAM 04/18/20 04/18/20 History insulin aspart U-100 [Novolog 20 unit SUBCUT .QBREAKFAST 04/18/20 04/18/20 History Flexpen U-100 Insulin] insulin aspart U-100 [Novolog 25 unit SUBCUT BIDM 04/18/20 04/18/20 History Flexpen U-100 Insulin] insulin glargine [Lantus U-100 80 unit SUBCUT QAM 04/18/20 04/18/20 History Insulin] insulin glargine [Lantus U-100 90 unit SUBCUT QPM 04/18/20 04/18/20 History Insulin] lisinopril 40 mg PO QAM 04/18/20 04/18/20 History lorazepam [Ativan] 0.5 mg PO Q6 PRN 04/18/20 04/18/20 History multivitamin 1 tab PO DAILY 04/18/20 04/18/20 History omega 4-zfa-wpn-fish oil [Fish Oil] 1 cap PO BID 04/18/20 04/18/20 History spironolactone [Aldactone] 25 mg PO QPM 04/18/20 04/18/20 History tamsulosin [Flomax] 0.4 mg PO QPM 04/18/20 04/18/20 History venlafaxine 37.5 mg PO QPM 04/18/20 04/18/20 History vitamin E 600 unit PO 3XWK 04/18/20 04/18/20 History Past Med/Surg History Medical History DM (diabetes mellitus) (Chronic) HTN (hypertension) (Chronic) Nephrolithiasis (Chronic) Prostate cancer (Chronic 11/14/17) Social History Smoking Status: Never smoker Hx Alcohol Use: Yes Alcohol type: beer Hx Substance Use: No Preferred Language: Albanian Communication Ability: Effective Car Designer Required: No Beliefs That Will Affect Care: None Current Living Situation: Family Other Information That Helps Us Care for You: No Feels Safe at Home: Yes Safety Concerns: Feels Safe At This Time Results & Data Vital Signs (Past 12 Hours) Vital Signs Temp Pulse Pulse Resp BP BP Pulse Ox 04/20/20 12:07 37.1 C 71 18 161/84 H 98 04/20/20 11:25 36.9 C 79 18 146/80 H 98 04/20/20 07:25 69 04/20/20 07:13 37.0 C 72 20 140/77 97 04/20/20 03:15 87 19 97 04/20/20 02:53 36.4 C L 74 20 131/69 97 04/20/20 00:56 69 Code Status & VTE Plan VTE Prophylaxis Plan VTE Prophylaxis will be ordered: Yes
[2020-04-20] MEDS ORDERED: PROPOFOL IV EMULSION 10 MG/ML 20 ML VIAL IV ONE (13:15)
[2020-04-20] MEDS ORDERED: LIDOCAINE HCL 2% 2 ML VIAL/AMP(20MG/ML) INFIL ONE (13:15)
[2020-04-20 14:03] VITALS: O2SAT 100
[2020-04-20 14:20] VITALS: PULSE 67
--- NOTE | 2020-04-20 14:24 | Anesthesiology Progress Note ---
Date of Service April 20, 2020 Anesthesia Post Procedure Vital Signs Vital Signs: Temp Pulse Pulse Resp BP BP Pulse Ox 04/20/20 14:17 67 18 147/79 H 100 04/20/20 14:02 65 18 152/76 H 100 04/20/20 13:48 69 16 142/78 H 98 04/20/20 12:07 37.1 C 71 18 161/84 H 98 04/20/20 11:25 36.9 C 79 18 146/80 H 98 04/20/20 07:25 69 04/20/20 07:13 37.0 C 72 20 140/77 97 04/20/20 03:15 87 19 97 04/20/20 02:53 36.4 C L 74 20 131/69 97 04/20/20 00:56 69 04/19/20 23:37 37.0 C 84 20 134/74 99 04/19/20 22:18 69 14 96 04/19/20 20:01 37.1 C 68 16 139/69 100 04/19/20 15:08 37.2 C 71 12 130/78 98 04/19/20 14:55 71 Transfer of Care Handoff Completed per policy Notes Mental Status: alert / awake / arousable Patient Amnestic to Procedure: Yes Nausea / Vomiting: adequately controlled Pain: adequately controlled Airway Patency, RR, SpO2: stable & adequate BP & HR: stable & adequate Hydration State: stable & adequate Anesthetic Complications: no major complications apparent
[2020-04-20] MEDS: CETIRIZINE HCL 10 MG TABLET PO SCH (15:19)
[2020-04-20] MEDS: MULTIVITAMIN TAB PO SCH (15:19)
--- NOTE | 2020-04-20 15:33 | Discharge Summary ---
Date of Service April 20, 2020 Admission HPI Per Admitting Provider History obtained from patient, family, and records. Medical history significant for hypertension, DM 2 insulin requiring, CRI (baseline creatinine 1.5), chronic anemia (baseline hemoglobin 12-13), GERD, prostate cancer status post radiation status post Lupron Rx, history colonic polyps/diverticulosis/internal hemorrhoids/radiation proctitis, multiple rectal angiectasias sp APC. as per records. Last confinement January 2018 for right renal colic secondary to right obstructive uropathy status post stent placement. Patient underwent outpatient colonoscopy last 3 weeks ago for rectal bleeding. Diverticulosis, polyps, radiation proctitis, multiple rectal angiectasia, nonbleeding internal hemorrhoids was noted on endoscopy. Multiple polyps resected and angiectasia was treated with APC. EGD showed hiatal hernia. This morning patient noted loose stools and dark blood clot passage per rectum, episodes totaling 8 as per patient. No abdominal pain, no fever, no chills. No chest pain, no S OB. Some lightheadedness, dizziness. No hematemesis/coffee-ground emesis. Patient contacted [facility] [place] office who recommended outpatient flex sigmoidoscopy tomorrow without anesthesia. Clear liquids recommended and OTC Fleet enemas for tonight and tomorrow a.m. Patient later directed by specialist office to ER because of bleeding progression. Medical History as above Surgical History : Carpal tunnel surgery, urologic procedures, dental surgery, tonsillectomy, sinus surgery Family History : Heart disease Personal/Social history : Non-smoker, occasional EtOH intake, flight hostess Admission Exam Per Admitting Provider GENERAL: Comfortable, obese, slightly anxious, no respiratory distress SKIN: Pallor, warm HEENT: Pale palpebral conjunctivae, no ptosis, dry buccal mucosa NECK : Supple, short neck, no tenderness CHEST : CTA, no tenderness HEART : RRR, no obvious murmurs ABDOMEN: Some distention, nontender EXTREMITIES : No LE swelling, no LE tenderness, no other conspicuous deformities noted NEUROLOGIC : Coherent, no facial asymmetry, no other gross focality Principal Diagnosis Acute lower GI bleed Acute blood loss anemia ERVIN on CKD3 Discharge Exam Constitutional + obese; no acute distress Eyes + anicteric sclerae and PERRL ENMT external ear and nose normal, oropharynx normal Respiratory normal respiratory effort, lungs clear to auscultation Cardiovascular RRR, no murmur, no edema Heart Sounds: normal S1 and normal S2 Extremities: no pedal edema Gastrointestinal (Abdomen) normal bowel sounds, soft, nontender, no hepatosplenomegaly Musculoskeletal no cyanosis or clubbing, extremities motor strength 5/5 Neurologic PERRL, EOMI, accommodation nl, no face palsy, no dysarthria Psychiatric A+Ox3, euthymic affect Discharge Data Allergies Allergy/AdvReac Type Severity Reaction Status Date / Time avocado Allergy Severe "Throat Verified 04/20/20 12:06 closes up" cat dander Allergy Intermediate Sneezing Verified 04/20/20 12:06 Consultations 04/18/20 19:25 ED Decision to Admit Stat 04/18/20 21:39 Consult Gastroenterology Routine Procedures Performed Operation Date: 04/20/20 16:00 Actual Procedures p Colonoscopy - [facility] (1) Acute blood loss anemia: (2) Acute lower GI bleeding: Acute lower GI bleed C-scope from 03/28/20 showed one 10mm polyp at ileocecal, three 6mm polyps in asc ending colon, three 6mm polyps in transverse colon all removed; sigmoid diverticulosis, radiation proctitis/multiple rectal angioectasis treated with APC, nonbleeding internal hemorrhoids. Pathology of polyps were tubular adenoma in transverse and ascending colonic polyps. Bleeding likely related to hemorrhoid/angioectasia with recent treatment. Acute blood loss anemia. Hb dropped from 11.2 on admission to 8.8 Hb has been stable in 8s Had Colonoscopy today. Per GI PA, bleeding likely from ulcer from prior APC tx in rectum Followup official endoscopy report Holding aspirin for now until asked to resume outpatient (3) Acute worsening of stage 3 chronic kidney disease: Acute kidney injury From Acute blood loss Cr was 1.87 on admission It was 1.66 in February 2019 and 1.5 in July 2019 (Epic) ERVIN resolved. Cr is 1.45 today (4) HTN (hypertension): Normotensive Monitor BP for now Resume home lisinopril Continue amlodipine (5) DM (diabetes mellitus): HbA1c was 7.2 in 05/2019 Continue insulin per protocol Currently NPO for possible procedure (6) CARLEY (obstructive sleep apnea): Continue CPAP HS Total Time Total Time Spent Total Time Spent (In Minutes): 25 Total Time Includes: Examination of the Patient, Discharge Planning, Medication Reconciliation and Communication With Other Providers Discharge Plan Discharge Items Patient Disposition: Home - Self-Care Reason For Visit: LGIB Discharge Diagnosis: Lower GI bleed Activity: Resume your previous activity Non-emergency contact: Primary Care Provider and Nailing Machine Operator Call non-emergency contact if: you have any medication questions Follow-up/Referrals: Elder Mirza MD [Primary Care Provider] - Diet: Carb Consistent or DM2 and Heart Healthy Addtl Attending Provider Instructions: Mr Martinez. You came to the hospital for bloody bowel movement. You were evaluated and managed for this. You also had acute on chronic kidney injury due to this which has resolved. You had a colonoscopy while in the hospital It is very important that you follow up with your Primary doctor and the Nailing Machine Operator. Continue to hold your aspirin until asked to resume. It was a pleasure taking care of you. Pending Studies at Discharge: No Stand-Alone Forms: My [facility], Smoking Cessation Medications and DC Order Prescriptions: Continued insulin aspart U-100 [Novolog Flexpen U-100 Insulin] 100 unit/mL (3 mL) insulin pen 25 unit subcut BIDM RF: 0 multivitamin Tablet 1 tab PO DAILY RF: 0 atorvastatin [Lipitor] 40 mg tablet 40 mg PO QPM RF: 0 Lantus U-100 Insulin 100 unit/mL solution 80 unit SUBCUT QAM RF: 0 cetirizine [Zyrtec] 10 mg Tablet 5 mg PO DAILY RF: 0 vitamin E 600 unit Capsule 600 unit PO 3XWK RF: 0 spironolactone [Aldactone] 25 mg tablet 25 mg PO QPM RF: 0 lorazepam [Ativan] 0.5 mg Tablet 0.5 mg PO Q6 PRN (Reason: Anxiety) RF: 0 tamsulosin [Flomax] 0.4 mg capsule 0.4 mg PO QPM RF: 0 amlodipine [Norvasc] 10 mg tablet 10 mg PO QPM RF: 0 venlafaxine 37.5 mg tablet 37.5 mg PO QPM RF: 0 hydrochlorothiazide 25 mg tablet 25 mg PO QAM RF: 0 lisinopril 40 mg tablet 40 mg PO QAM RF: 0 insulin aspart U-100 [Novolog Flexpen U-100 Insulin] 100 unit/mL (3 mL) insulin pen 20 unit SUBCUT .QBREAKFAST RF: 0 Glucosamine Complex-MSM Capsule 1 cap PO QPM RF: 0 omega 3-byb-roa-fish oil [Fish Oil] 1,000 mg (120 mg-180 mg) Capsule 1 cap PO BID RF: 0 Lantus U-100 Insulin 100 unit/mL solution 90 unit SUBCUT QPM RF: 0 Discontinued aspirin [Aspir-81] 81 mg Tablet,Delayed Release (Dr/Ec) 81 mg PO QPM RF: 0 Discharge Orders: Discharge Order (Routine); Ordered 04/20/20 Ordered By: Cira Nielsen Admission Data Admit Date/Time: 04/18/20 20:16 Attending Provider: Cira Nielsen I. Admit Provider: Sukhwinder Vega Primary Care Provider: Elder Mirza Other Providers: Sukhwinder Vega ; Brooks Rubio ; Cassie Hernandez ; Celia Zaidi ; Zuleyka Garcias ; Arron Fisher ; Gilma Del Rio ; Sandee Yeh ; Brianna Mccann ; Ace Davalos ; Yogesh Hannah ; Umm Ferguson ; Mei Billingsley ; Doreen Mcmanus ; Abigail Sparks ; Janie Tilley Other Interventions: Discharge Summary Assessment (RN) Last Done: 04/20/20 15:36 DC Date/Time DO NOT enter until pt leaves facility: 04/20/20 16:22
[2020-04-20 15:37] VITALS: BP 146/80
--- NOTE | 2020-04-21 09:42 | GI REPORT ---
Patient Name: Irving Martienz Procedure Date: 04/20/2020 1:19 PM Date of : 1945 Admit Type: Inpatient Age: 74 Gender: Male Attending MD: Sandee Yeh MD Procedure: Colonoscopy Providers: Sandee Yeh MD Referring MD: Janie Tilley MD, Elder Mirza Indications: Rectal bleeding Medicines: See the Anesthesia note for documentation of the administered medications Complications: No immediate complications. Estimated Blood Loss: Estimated blood loss: none. Procedure: Pre-Anesthesia Assessment: - ASA Grade Assessment: IV - A patient with severe systemic disease that is a constant threat to life. - After reviewing the risks and benefits, the patient was deemed in satisfactory condition to undergo the procedure. After I obtained informed consent, the scope was passed under direct vision. Throughout the procedure, the patient's blood pressure, pulse, and oxygen saturations were monitored continuously. The Colonoscope was introduced through the anus and advanced to the terminal ileum. The colonoscopy was performed without difficulty. The patient tolerated the procedure well. The quality of the bowel preparation was poor. Findings: The perianal and digital rectal examinations were normal. There was a large ulcer just proximal to the anal verge with a firmly adherent clot that could not be dislodged with vigorous lavage. I did not see evidence of persistent radiation proctitis. There was a large amount of brown stool in the colon, making visualization difficult. There was a clip in the ascending colon. There was a healing shallow ulcer on the IC valve corresponding to prior polypectomy with small flat pigmented spots but no high risk stigmata. No clips were seen on this site. Of note, visualization of the IC valve was difficult to prep quality. The remainder of the colon was grossly normal but could not be well evaluated. The ileum was normal. Impression: - Preparation of the colon was poor. - Large rectal ulcer from prior APC without high risk stigmata. - IC valve post polypectomy healing ulcer without high risk stigmata. Recommendation: - Discharge patient to floor. Advance diet as tolerated. Avoid constipation. Begin Miralax 1-2 x day. OK for d/c in am. Liliya Mcguire MD 04/21/2020 9:42:32 AM This report has been signed electronically. Note Initiated On: 04/20/2020 1:19 PM Number of Addenda: 0 I attest to the content of the Intraoperative Record and orders documented therein, exceptions below {[id number]}
== END 2020-04-20 16:22 | disposition home or self-care (01) ==
LOC: ED 17:18 → 2N 17:18

== ENCOUNTER 2020-05-12 13:53 | Inpatient (IN) ==
[2020-05-12] MEDS ORDERED: SODIUM CHLORIDE 0.9% 250 ML IV PRN ×2 (15:02→22:13)
--- NOTE | 2020-05-12 15:08 | Emergency Department Note ---
Impression & Plan Acute lower GI bleeding, Anemia, Weakness, Fatigue ED Provider Note NAME: HILARY BACA AGE: 74 SEX: M : 1945 ARRIVES VIA: Walk-In INFORMANT: [Patient][family] ED PROVIDER(S): [Alexsander Hernandez MD] CHIEF COMPLAINT: GI bleeding HISTORY OF PRESENT ILLNESS: The patient is a 74-year-old male who presents with bright red rectal bleeding. The patient was in our hospital earlier this month for the same issue. He has not been bleeding now for almost 2 weeks. Today, he began bleeding and has had at least 3 heavy bloody bowel movements. He feels short of breath and dizzy and lightheaded. No chest pain, although, he feels his heartbeat pounding in his ears. The patient states that he does not have any abdominal pain. There have been no urinary complaints. No fever. He is not on any blood thinning medications. As per the patient and his family, his hemoglobin was low in the 7-8 range lately, he is not sure where it is today. 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 He also has a history of some ulcers from colonic polyp removal. REVIEW OF SYSTEMS: See HPI for pertinent positives and negatives. A total of ten systems were reviewed and were otherwise negative. PMHx/PSHx: See Below SOCIAL HISTORY: See Below. PHYSICAL EXAM: GENERAL: Patient is in no acute distress. HEENT: No acute trauma, normocephalic atraumatic, mucous membranes moist, no nasal congestion, no scleral icterus. NECK: No stridor, no adenopathy, no meningismus, trachea is midline. LUNGS: Clear to auscultation bilaterally, no wheeze, no rhonchi, breath sounds equal. HEART: Without murmurs gallops or rubs, regular rate and rhythm. ABDOMEN: Soft, nontender, bowel sounds positive, no hernias, no peritonitis. EXTREMITIES: No cyanosis or edema, full range of motion of all the joints without pain or difficulty, no signs for acute trauma. NEUROLOGIC: Oriented x 3, no acute motor or sensory deficits, no focal weakness. SKIN: No rash, no jaundice, no diaphoresis. Pale Rectal: Deferred as there was bright red blood in the patient's toilet. DIFFERENTIAL DIAGNOSIS: Diverticulosis, AVM, coagulopathy, colitis, inflammatory bowel disease, malignancy, Amanda-Narvaez tear, esophagitis, peptic ulcer disease, variceal bleed, gastritis, epistaxis, fissure, hemorrhoids, as well as other pathologies. EMERGENCY DEPARTMENT COURSE/PROCEDURES: ECG: Indication was palpitations. The ECG shows a normal sinus rhythm with a rate of 81. There is no ST elevation, no PVCs. The QTc is 434. There is some poor R wave progression. Continuous Cardiac Monitoring: An order was placed for continuous cardiac monitoring. The monitor shows a rate of 81 with normal sinus rhythm. MEDICAL DECISION MAKING: There is no leukocytosis. The patient is anemic but his hemoglobin is about baseline as of late. There is a normal platelet count. No coagulopathy. Creatinine is slightly elevated but again baseline for him looking back at previous testing. No concerning electrolyte abnormality. No liver enzyme elevation. ECG showed a sinus rhythm, no acute ischemia. Cardiac enzyme testing x1 is not consistent with acute cardiac injury. On exam, the patient was quite pale. He had bright red blood in the toilet of his room. Rectal exam was bloody as per the GI life consultant. The patient received IV saline, 1 L. He has done well with this. He is not at this point really having any complaints. The patient is pale, anemic and bleeding rectally. He has a history of the same. Hospitalization, monitoring, hemoglobin trending will be required. At this point, the patient has been typed and crossed but I have not ordered for blood as his hemoglobin is above 8 and at about his baseline The patient is aware of his findings, case management has been involved. The on-call hospitalist was consulted. Past Med/Surg History Medical History CKD (chronic kidney disease), stage III DM type 2 (diabetes mellitus, type 2) HTN (hypertension) Nephrolithiasis CARLEY (obstructive sleep apnea) Prostate cancer (11/14/17) Surgical History H/O sinus surgery History of carpal tunnel surgery History of tonsillectomy Family History Other Adopted Social History Smoking Status: Never smoker Hx Alcohol Use: Yes Alcohol type: beer Hx Substance Use: No Preferred Language: Bulgarian Communication Ability: Effective Salon Assistant Required: No Beliefs That Will Affect Care: None Current Living Situation: Family Other Information That Helps Us Care for You: No Feels Safe at Home: Yes Safety Concerns: Feels Safe At This Time Allergies Allergies Allergy/AdvReac Type Severity Reaction Status Date / Time avocado Allergy Severe "Throat Verified 05/12/20 15:21 closes up" cat dander Allergy Intermediate Sneezing Verified 05/12/20 15:21 Home Meds Home Medications Medication Instructions Recorded Confirmed Glucosamine Complex-MSM 1 cap PO QPM 04/18/20 05/12/20 Lantus U-100 Insulin 70 unit SUBCUT AMPM 04/18/20 05/12/20 amlodipine [Norvasc] 10 mg PO QPM 04/18/20 05/12/20 atorvastatin [Lipitor] 40 mg PO QPM 04/18/20 05/12/20 cetirizine [Zyrtec] 5 mg PO DAILY 04/18/20 05/12/20 hydrochlorothiazide 25 mg PO QAM 04/18/20 05/12/20 insulin aspart U-100 [Novolog unit SUBCUT TIDM 04/18/20 04/18/20 Flexpen U-100 Insulin] lorazepam [Ativan] 0.5 mg PO Q6 PRN 04/18/20 05/12/20 multivitamin 1 tab PO DAILY 04/18/20 05/12/20 omega 4-vic-vzi-fish oil [Fish Oil] 1 cap PO BID 04/18/20 05/12/20 spironolactone [Aldactone] 25 mg PO QPM 04/18/20 05/12/20 tamsulosin [Flomax] 0.4 mg PO QPM 04/18/20 05/12/20 venlafaxine 37.5 mg PO QPM 04/18/20 05/12/20 vitamin E 600 unit PO 3XWK 04/18/20 05/12/20 acetaminophen [Tylenol Extra 500 mg PO Q8 PRN 05/12/20 05/12/20 Strength] losartan 100 mg PO DAILY 05/12/20 05/12/20 pantoprazole 20 mg PO DAILY 05/12/20 05/12/20 polyethylene glycol 3350 [Miralax] 17 g PO BID 05/12/20 05/12/20 sucralfate See Rx Instructions .ROUTE .COMPLEX 05/12/20 05/12/20 sulfasalazine 1,000 mg PO BID 05/12/20 05/12/20 Results & Data (ED) Vital Signs Vital Signs - 24 hr 05/12/20 14:07 05/12/20 15:02 05/12/20 15:30 Temperature 36.9 C Temperature Source Oral Pulse Rate 86 72 Pulse Rhythm Regular Pulse Strength Normal Respiratory Rate 20 21 Respiratory Effort / Characteristics Non-Labored Spontaneous Respiratory Depth Normal Respiratory Pattern Regular Blood Pressure 124/72 113/77 Blood Pressure Mean 89 94 Blood Pressure Position Sitting Pulse Oximetry 100 95 Oxygen Delivery Method Room Air Room Air Room Air Sepsis Recent Fever Within 48 Hours No Sepsis New/Unexplained Change in Mental Status No Sepsis Action Taken by Nursing No Action Required 05/12/20 16:01 Temperature Temperature Source Pulse Rate 78 Pulse Rhythm Pulse Strength Respiratory Rate 20 Respiratory Effort / Characteristics Respiratory Depth Respiratory Pattern Blood Pressure 152/99 H Blood Pressure Mean 118 Blood Pressure Position Pulse Oximetry 95 Oxygen Delivery Method Room Air Sepsis Recent Fever Within 48 Hours Sepsis New/Unexplained Change in Mental Status Sepsis Action Taken by Alf Medications Current Medication List: was personally reviewed by me Laboratory Data Attestation: I reviewed the patient's lab results. Result diagrams: 05/12/20 20:46 05/12/20 15:16 Lab Results 05/12/20 05/12/20 05/12/20 Range/Units 15:16 15:16 15:16 WBC 5.45 (4.8-10.8) K/uL RBC 2.78 L (4.7-6.1) M/uL Hgb 8.4 L (14.0-18.0) g/dL Hct 26.4 L (42-52) % MCV 95.0 (80-100) fL MCH 30.2 (25-34) pg MCHC 31.8 L (32-36) g/dL RDW Std Deviation 56.0 H (36.4-46.3) fL RDW Coeff of Richard 16.3 H (11.5-14.5) % Plt Count 340 (130-400) K/uL MPV 10.0 (7.4-10.4) fL Immature Gran % (Auto) 0.4 % Neut % (Auto) 75.8 % Lymph % (Auto) 13.0 % Nye % (Auto) 7.9 % Eos % (Auto) 2.2 % Baso % (Auto) 0.7 % Neut # (Auto) 4.13 (1.4-6.5) K/uL Lymph # (Auto) 0.71 L (1.2-3.4) K/uL Nye # (Auto) 0.43 (0.11-0.59) K/uL Eos # (Auto) 0.12 (0-0.5) K/uL Baso # (Auto) 0.04 (0-0.2) K/uL Immature Gran # (Auto) 0.02 (0.00-0.02) K/uL PT 11.2 (9.0-12.0) Seconds INR 1.1 (0.9-1.1) APTT 26.5 (21.0-31.0) Seconds PTT Ratio 0.9 Sodium (136-145) mmol/L Potassium (3.5-5.1) mmol/L Chloride (98-107) mmol/L Carbon Dioxide (21-32) mmol/L Anion Gap (3-11) BUN (7-18) mg/dl Creatinine (0.6-1.4) mg/dl Est Cr Clr Drug Dosing ml/min Est GFR ( Amer) Est GFR (Non-Af Amer) BUN/Creatinine Ratio (10-20) Glucose (70-99) mg/dl Calcium (8.5-10.1) mg/dl Magnesium (1.8-2.4) mg/dl Total Bilirubin (0.2-1) mg/dl AST (15-37) U/L ALT (12-78) U/L Alkaline Phosphatase (45-117) U/L Troponin I (0-0.045) ng/ml Total Protein (6.4-8.2) gm/dl Albumin (3.4-5.0) gm/dl Globulin (2.5-4.0) gm/dl Albumin/Globulin Ratio (0.9-2) POC Stool Occult Blood (Negative) Blood Type A Positive Antibody Screen NEGATIVE Crossmatch See Detail 05/12/20 05/12/20 Range/Units 15:16 15:31 WBC (4.8-10.8) K/uL RBC (4.7-6.1) M/uL Hgb (14.0-18.0) g/dL Hct (42-52) % MCV (80-100) fL MCH (25-34) pg MCHC (32-36) g/dL RDW Std Deviation (36.4-46.3) fL RDW Coeff of Richard (11.5-14.5) % Plt Count (130-400) K/uL MPV (7.4-10.4) fL Immature Gran % (Auto) % Neut % (Auto) % Lymph % (Auto) % Nye % (Auto) % Eos % (Auto) % Baso % (Auto) % Neut # (Auto) (1.4-6.5) K/uL Lymph # (Auto) (1.2-3.4) K/uL Nye # (Auto) (0.11-0.59) K/uL Eos # (Auto) (0-0.5) K/uL Baso # (Auto) (0-0.2) K/uL Immature Gran # (Auto) (0.00-0.02) K/uL PT (9.0-12.0) Seconds INR (0.9-1.1) APTT (21.0-31.0) Seconds PTT Ratio Sodium 137 (136-145) mmol/L Potassium 3.5 (3.5-5.1) mmol/L Chloride 101 (98-107) mmol/L Carbon Dioxide 27 (21-32) mmol/L Anion Gap 9.0 (3-11) BUN 18 (7-18) mg/dl Creatinine 1.70 H (0.6-1.4) mg/dl Est Cr Clr Drug Dosing 49.9 ml/min Est GFR ( Amer) 45.0 Est GFR (Non-Af Amer) 38.9 BUN/Creatinine Ratio 10.7 (10-20) Glucose 123 H (70-99) mg/dl Calcium 9.4 (8.5-10.1) mg/dl Magnesium 2.0 (1.8-2.4) mg/dl Total Bilirubin 0.3 (0.2-1) mg/dl AST 12 L (15-37) U/L ALT 25 (12-78) U/L Alkaline Phosphatase 88 (45-117) U/L Troponin I < 0.015 (0-0.045) ng/ml Total Protein 7.3 (6.4-8.2) gm/dl Albumin 3.8 (3.4-5.0) gm/dl Globulin 3.5 (2.5-4.0) gm/dl Albumin/Globulin Ratio 1.1 (0.9-2) POC Stool Occult Blood Positive A (Negative) Blood Type Antibody Screen Crossmatch Administered Medications Amlodipine Besylate (Amlodipine Besylate 5 Mg Tab) 10 mg PO QPM MAMADOU Stop: 06/11/20 20:59 Last Admin: 05/12/20 20:31 Dose: 10 mg Documented by: [id number] Atorvastatin Calcium (Atorvastatin 40 Mg Tab) 40 mg PO QPM MAMADOU Stop: 06/11/20 20:59 Last Admin: 05/12/20 20:29 Dose: 40 mg Documented by: [id number] Sodium Chloride (Nss 1000ml) 1,000 mls @ 100 mls/hr IV .Q10H MAMADOU Stop: 06/11/20 18:30 Last Admin: 05/12/20 18:38 Dose: 100 mls/hr Documented by: [id number] Lorazepam (Lorazepam 0.5 Mg Tab) 0.5 mg PO Q6 PRN PRN Reason: Anxiety Stop: 06/11/20 18:30 Last Admin: 05/12/20 20:31 Dose: 0.5 mg Documented by: [id number] Phenylephrine HCl (Anusol Supp 1 Ea) 1 ea HI BID MAMADOU Stop: 06/11/20 20:59 Last Admin: 05/12/20 20:27 Dose: 1 ea Documented by: [id number] Polyethylene Glycol (Polyethylene (Miralax) 17 Gm Pack) 17 gm PO BID MAMADOU Stop: 06/11/20 20:59 Last Admin: 05/12/20 20:30 Dose: 17 gm Documented by: [id number] Sulfasalazine (Sulfasalazine 500 Mg Tablet) 1,000 mg PO BID MAMADOU Stop: 06/11/20 20:59 Last Admin: 05/12/20 20:28 Dose: 1,000 mg Documented by: [id number] Tamsulosin HCl (Tamsulosin Hcl 0.4 Mg Cap) 0.4 mg PO QPM MAMADOU Stop: 06/11/20 20:59 Last Admin: 05/12/20 20:29 Dose: 0.4 mg Documented by: [id number] Venlafaxine HCl (Venlafaxine Hcl 37.5 Mg Tab) 37.5 mg PO QPM [facility] Stop: 06/11/20 20:59 Last Admin: 05/12/20 20:28 Dose: 37.5 mg Documented by: [id number] Discontinued Medications Sodium Chloride (Nss 1000ml) 1,000 mls @ 999 mls/hr IV .Q1H1M MAMADOU Stop: 05/12/20 16:15 Last Infusion: 05/12/20 16:38 Dose: 0 mls/hr Documented by: [id number] Admin: 05/12/20 15:30 Dose: 999 mls/hr Documented by: [id number] Blood Pressure Blood Pressure Findings: Elevated blood pressure Blood Pressure Disposition: further management by hospitalist Discharge Plan Visit Data Chief Complaint: GI Bleed Stated Complaint: RECTAL BLEEDING ED Provider: Alexsander Hernandez Discharge Problem: Acute lower GI bleeding, Anemia, Weakness, Fatigue Patient Disposition: Admitted As Inpatient Condition: Good Discharge Instructions Interventions: ED Discharge Assessment Last Done: 05/12/20 17:35 Discharge Problem: Anemia Qualifiers: Anemia type: unspecified type Qualified Code(s): D64.9 - Anemia, unspecified Fatigue Qualifiers: Fatigue type: unspecified Qualified Code(s): R53.83 - Other fatigue
[2020-05-12] MEDS ORDERED: SODIUM CHLORIDE 0.9% 1000ML 1,000 ML IV SCH (15:15)
[2020-05-12 15:31] LABS: Basophils # (auto) 0.04 K/uL (0-0.2); Basophils % (auto) 0.7 %; Eosinophils # (auto) 0.12 K/uL (0-0.5); Eosinophils % (auto) 2.2 %; Hematocrit (blood only) 26.4 % (42-52); Hemoglobin 8.4 g/dL (14.0-18.0); Immature Granulocytes # (auto) 0.02 K/uL (0.00-0.02); Immature Granulocytes % (auto) 0.4 %; Lymphocytes # (auto) 0.71 K/uL (1.2-3.4); Mean Corpuscular Hemoglobin 30.2 pg (25-34); Mean Corpuscular Hgb Conc 31.8 g/dL (32-36); Monocytes # (auto) 0.43 K/uL (0.11-0.59); Monocytes % (auto) 7.9 %; Neutrophils # (auto) 4.13 K/uL (1.4-6.5); Neutrophils % (auto) 75.8 %; Platelet Count 340 K/uL (130-400); RDW Coefficient of Variation 16.3 % (11.5-14.5); Red Blood Count 2.78 M/uL (4.7-6.1); White Blood Count 5.45 K/uL (4.8-10.8)
--- NOTE | 2020-05-12 15:38 | Gastrointestinal Consultation ---
Date of Consultation May 12, 2020 Assessment & Plan (1) Rectal bleeding: Pt is a 74 y/o male who presented w painless rectal bleeding x 4 episodes since it started today around noon. Hx of radiation proctitis, treated w APC, colon polypectomies on 03/28/2020. He had ulcer in post polypectomy sites and large rectal ulcer, treated w APC on 04/20/2020. Flex sig 05/02 showed rectal ulcer treated w bioplar cautery and he since then had been using Carafate enema, Sulfasalazine and Miralax. Prior to today, he hasn't had any rectal bleeding x 10 days. DDX: hemorrhoidal bleed, ulcer bleed. - Obtain basic labs including blood ct and chemistry panel, coags. - Type and cross, plan for blood transfusion if Hgb <8 - Will review labs once results and coordinate care with Dr. Tilley to decide if pt would need repeat flex sigmoidscopy over the weekend - NPO for now - IVF support Supervising Physician Co-Signing Physician Notes I have seen and examined the patient and discussed the management with JULIETH Carrasco. 74 yo male with a history of radiation proctitis presented with rectal bleeding mid 04/03 and had findings of radiatio procitis treated with apc, then with rectal bleeding thereafter - repeat colonoscopy early 05/04 showing a rectal ulcer with an adherent clot. Follow-up colonoscopy mid 05/04 for rectal bleeding showing an ulcer treated with bipolar cautery, on carafate and sulfasalazine enemas since then. Today with a few episodes of rectal bleeding, slightly lightheaded. PE noteable for a slightly pale appearing male in nad, HEENT - perrla, CV - rrr no mrg, Abd - protuberant abdomen but soft nt nd +bs, Rectal exam as per judi's exam Hgb stable Bun pending No overt bleeding noted at time of examination, hemodynamically stable Will assess response to IV fluids, he's not taking blood thinners at this time. History of Present Illness Reason for Consultation: Rectal Bleeding Requesting Physician: Dr. Alexsander Hernandez Attending Physician: Dr. Abigail Sparks History of Present Illness Pt is a 74 y/o male who presented to ED w c/o painless rectal bleeding. Hx of prostate ca s/p XRT, lupron injections, completed treatment in 2018. He had EGD/colonoscopy by Dr. Tilely on 03/28/2020. Found to have hiatal hernia, colon polyps (adenomatous), internal hemorrhoids, radiation proctitis treated w APC. He was admitted early April w rectal bleeding. Repeat colonoscopy by Dr. Yeh on 04/23/2020 shower large rectal ulcer, treated w APC, IC valve post polypectomy ulcer, healing. F/U Flex sigmoidscopy done recently on 05/02/[address] Tilley which showed solitary rectal ulcer treated w bipolar cautery. Since then he's been taking Miralax, Carafate enema, Sulfasalazine. Pt reports he wasn't seeing any rectal bleeding x 10 days. Today around noon, went to bathroom and was about to administer enema, and started to have rectal bleeding. 4 episodes so far today from home to ED now. He denies associated fever, chills, CP, SOB, abd pain, n/v, rectal pain. He is feeling a bit light headed and anxious. His last BM was about 2 days ago - looser stools. He ate cereal for breakfast today. He denies any ASA or anticoagulants. Last outpt blood ct noted, Hgb around 7 and he received IV iron on 05/05/2020 Allergies Allergy/AdvReac Type Severity Reaction Status Date / Time avocado Allergy Severe "Throat Verified 05/12/20 15:21 closes up" cat dander Allergy Intermediate Sneezing Verified 05/12/20 15:21 Home Medications Home Medications Medication Instructions Recorded Confirmed Type Glucosamine Complex-MSM 1 cap PO QPM 04/18/20 05/12/20 History Lantus U-100 Insulin 70 unit SUBCUT AMPM 04/18/20 05/12/20 History amlodipine [Norvasc] 10 mg PO QPM 04/18/20 05/12/20 History atorvastatin [Lipitor] 40 mg PO QPM 04/18/20 05/12/20 History cetirizine [Zyrtec] 5 mg PO DAILY 04/18/20 05/12/20 History hydrochlorothiazide 25 mg PO QAM 04/18/20 05/12/20 History insulin aspart U-100 [Novolog 20 - 25 unit SUBCUT BIDM 04/18/20 05/12/20 History Flexpen U-100 Insulin] lisinopril 40 mg PO QAM 04/18/20 05/12/20 History lorazepam [Ativan] 0.5 mg PO Q6 PRN 04/18/20 05/12/20 History multivitamin 1 tab PO DAILY 04/18/20 05/12/20 History omega 3-zzk-ddp-fish oil [Fish Oil] 1 cap PO BID 04/18/20 05/12/20 History spironolactone [Aldactone] 25 mg PO QPM 04/18/20 05/12/20 History tamsulosin [Flomax] 0.4 mg PO QPM 04/18/20 05/12/20 History venlafaxine 37.5 mg PO QPM 04/18/20 05/12/20 History vitamin E 600 unit PO 3XWK 04/18/20 05/12/20 History acetaminophen [Tylenol Extra 500 mg PO Q8 PRN 05/12/20 05/12/20 History Strength] polyethylene glycol 3350 [Miralax] 17 g PO BID 05/12/20 05/12/20 History sucralfate 1 g PO DIRECTED 05/12/20 05/12/20 History sulfasalazine 1,000 mg PO BID 05/12/20 05/12/20 History Patient History Medical History DM (diabetes mellitus) HTN (hypertension) Nephrolithiasis Prostate cancer (11/14/17) Social History Smoking Status: Never smoker Hx Alcohol Use: Yes Alcohol type: beer Hx Substance Use: No Preferred Language: [place] Communication Ability: Effective Librarian Head Required: No Beliefs That Will Affect Care: None Current Living Situation: Family Feels Safe at Home: Yes Review of Systems Review of Systems: All systems reviewed & are unremarkable except as noted in HPI & below Physical Exam Constitutional: WD/WN, vitals as above well groomed, cooperative and comfortable Eyes: PERRL, conjunctivae normal, anicteric sclerae ENMT: external ear and nose normal, oropharynx normal Respiratory: normal respiratory effort, lungs clear to auscultation Cardiovascular: RRR, no murmur, no edema Gastrointestinal (Abdomen): normal bowel sounds, soft, nontender, no hepatosplenomegaly Rectal Exam: + hemorrhoids (internal; + bright red blood in rectal vault) Skin: no rashes, warm and dry no jaundice Psychiatric: A+Ox3, euthymic affect Lymphatic: no lymphedema Results & Data ([facility]) Vital Signs (Past 12 Hours) Vital Signs Temp Pulse Resp BP Pulse Ox 05/12/20 14:07 36.9 C 86 20 124/72 100
[2020-05-12 15:41] LABS: INR 1.1 (0.9-1.1); Partial Thromboplastin Ratio 0.9; Partial Thromboplastin Time 26.5 Seconds (21.0-31.0); Prothrombin Time 11.2 Seconds (9.0-12.0)
[2020-05-12 15:47] LABS: Alanine Aminotransferase 25 U/L (12-78); Albumin Level 3.8 gm/dl (3.4-5.0); Aspartate Aminotransferase 12 U/L (15-37); BUN Creatinine Ratio 10.7 (10-20); Blood Urea Nitrogen 18 mg/dl (7-18); Calcium 9.4 mg/dl (8.5-10.1); Carbon Dioxide 27 mmol/L (21-32); Chloride 101 mmol/L (98-107); Creatinine Clr Calc Pharmacy 49.9 ml/min; Est GFR (Non-African American) 38.9; Glucose 123 mg/dl (70-99); Potassium 3.5 mmol/L (3.5-5.1); Sodium 137 mmol/L (136-145)
[2020-05-12 15:50] LABS: Albumin Globulin Ratio 1.1 (0.9-2); Alkaline Phosphatase 88 U/L (45-117); Bilirubin,Total 0.3 mg/dl (0.2-1); Globulin 3.5 gm/dl (2.5-4.0); Total Protein 7.3 gm/dl (6.4-8.2); Troponin I < 0.015 ng/ml (0-0.045)
--- NOTE | 2020-05-12 16:31 | Electrocardiogram Report ---
Test Reason : Blood Pressure : / mmHG Vent. Rate : 081 BPM Atrial Rate : 081 BPM P-R Int : 160 ms QRS Dur : 090 ms QT Int : 374 ms P-R-T Axes : 052 000 048 degrees QTc Int : 434 ms Normal sinus rhythm Normal ECG When compared with ECG of 18-APR-2020 17:59, No significant change was found Confirmed by Harpreet Ramos ([id number]) on 05/12/2020 4:31:10 PM Referred By: REFERRED SELF Confirmed By:Harpreet Ramos
--- NOTE | 2020-05-12 17:36 | History & Physical Report ---
Date of Service May 12, 2020 Assessment & Plan (1) Lower GI bleed: -Admit to [facility] with telemetry -Patient presenting from home with reports of rectal bleeding. Recent GI history outlined in HPI -Consider hemorrhoidal bleed vs rebleeding ulcer -GI evaluated the patient in the ED -recommend conservative management; continue p.o. sulfasalazine and MiraLAX, start Anusol suppositories in place of sucralfate enemas -Trend Hgb, transfuse for Hgb <8.0 -N.p.o. after midnight for possible flex sig (2) Anemia: -Hgb 8.4; stable per recent baseline -Had iron infusion on 05/05 -Continue to trend H&H, transfuse PRN (3) HTN (hypertension): -BP controlled, continue losartan and amlodipine -Hold HCTZ, spironolactone while receiving IVF (4) CKD (chronic kidney disease), stage III: -Baseline creatinine mid to high 1's -Noted to be 1.7 today -Continue to monitor renal functions, avoid nephrotoxic agents when able (5) CARLEY (obstructive sleep apnea): -CPAP as per home settings (6) DVT prophylaxis: -SCDs due to rectal bleeding History of Present Illness Chief Complaint: Rectal bleeding Primary Care Provider: Elder Mirza MD 74-year-old male with PMH DM type II, CKD stage III, HTN, prostate cancer, and other problems listed below who presents the ED for evaluation of rectal bleeding. Recent GI history includes, (per GI consult note): He had EGD/colonoscopy by Dr. Tilley on 03/28/2020. Found to have hiatal hernia, colon polyps (adenomatous), internal hemorrhoids, radiation proctitis treated w APC. He was admitted early April w rectal bleeding. Repeat colonoscopy by Dr. Yeh on 04/23/2020 shower large rectal ulcer, treated w APC, IC valve post polypectomy ulcer, healing. F/U Flex sigmoidscopy done recently on 05/02/[address] Tilley which showed solitary rectal ulcer treated w bipolar cautery.Since then he's been taking Miralax, Carafate enema, Sulfasalazine. H emoglobin on 05/03 was 7.1, patient had iron infusion on 05/05. Patient has not had any blood transfusions. Patient reports that today around noon, he was about to take his sucralfate enema and he developed bright red bleeding per rectum. Patient reports about 5 episodes since that time. He has had associated weakness, lightheadedness, shortness of breath. Has some abdominal cramping before having a bowel movement. Denies nausea or vomiting. No chest pain or syncopal event. Denies any other recent illnesses, fevers, chills. No cough or sputum production. Denies any urinary symptoms. In the ED, rectal exam revealed bright red blood. Hgb is 8.4. Patient has remained hemodynamically stable. GI has evaluated the patient in the ED and recommends observation overnight for hemoglobin trending. Patient received IVF. Allergies Allergy/AdvReac Type Severity Reaction Status Date / Time avocado Allergy Severe "Throat Verified 05/12/20 15:21 closes up" cat dander Allergy Intermediate Sneezing Verified 05/12/20 15:21 Home Medications Home Medications Medication Instructions Recorded Confirmed Type Glucosamine Complex-MSM 1 cap PO QPM 04/18/20 05/12/20 History Lantus U-100 Insulin 70 unit SUBCUT AMPM 04/18/20 05/12/20 History amlodipine [Norvasc] 10 mg PO QPM 04/18/20 05/12/20 History atorvastatin [Lipitor] 40 mg PO QPM 04/18/20 05/12/20 History cetirizine [Zyrtec] 5 mg PO DAILY 04/18/20 05/12/20 History hydrochlorothiazide 25 mg PO QAM 04/18/20 05/12/20 History insulin aspart U-100 [Novolog unit SUBCUT TIDM 04/18/20 04/18/20 History Flexpen U-100 Insulin] lorazepam [Ativan] 0.5 mg PO Q6 PRN 04/18/20 05/12/20 History multivitamin 1 tab PO DAILY 04/18/20 05/12/20 History omega 1-bua-nwh-fish oil [Fish Oil] 1 cap PO BID 04/18/20 05/12/20 History spironolactone [Aldactone] 25 mg PO QPM 04/18/20 05/12/20 History tamsulosin [Flomax] 0.4 mg PO QPM 04/18/20 05/12/20 History venlafaxine 37.5 mg PO QPM 04/18/20 05/12/20 History vitamin E 600 unit PO 3XWK 04/18/20 05/12/20 History acetaminophen [Tylenol Extra 500 mg PO Q8 PRN 05/12/20 05/12/20 History Strength] losartan 100 mg PO DAILY 05/12/20 05/12/20 History pantoprazole 20 mg PO DAILY 05/12/20 05/12/20 History polyethylene glycol 3350 [Miralax] 17 g PO BID 05/12/20 05/12/20 History sucralfate See Rx Instructions .ROUTE .COMPLEX 05/12/20 05/12/20 History sulfasalazine 1,000 mg PO BID 05/12/20 05/12/20 History Past Med/Surg History Medical History CKD (chronic kidney disease), stage III DM type 2 (diabetes mellitus, type 2) HTN (hypertension) Nephrolithiasis CARLEY (obstructive sleep apnea) Prostate cancer (11/14/17) Surgical History H/O sinus surgery History of carpal tunnel surgery History of tonsillectomy Family History Other Adopted Social History Smoking Status: Never smoker Hx Alcohol Use: Yes Alcohol type: beer Hx Substance Use: No Preferred Language: German Communication Ability: Effective Car Restorer Required: No Beliefs That Will Affect Care: None Current Living Situation: Family Other Information That Helps Us Care for You: No Feels Safe at Home: Yes Safety Concerns: Feels Safe At This Time Review of Systems Review of Systems: ROS per HPI, all other systems reviewed and negative Physical Exam Constitutional: WD/WN, vitals as above Eyes: PERRL, conjunctivae normal, anicteric sclerae ENMT: external ear and nose normal, oropharynx normal Respiratory: normal respiratory effort, lungs clear to auscultation Cardiovascular: Rate/Rhythm: regular rate and regular rhythm Vessels: normal peripheral pulses Extremities: no edema Gastrointestinal (Abdomen): normal bowel sounds, soft, nontender, no hepatosplenomegaly Musculoskeletal: no cyanosis or clubbing, extremities motor strength 5/5 Skin: no rashes, warm and dry + pallor Neurologic: PERRL, EOMI, accommodation nl, no face palsy, no dysarthria Psychiatric: A+Ox3, euthymic affect Results & Data Results & Data ([facility]) Vital Signs (Past 12 Hours) Vital Signs Temp Pulse Resp BP Pulse Ox 05/12/20 16:45 78 13 127/88 05/12/20 16:41 83 14 138/74 95 05/12/20 16:01 78 20 152/99 H 95 05/12/20 15:30 72 21 113/77 95 05/12/20 14:07 36.9 C 86 20 124/72 100 Laboratory Results Short CBC 05/12/20 05/12/20 Range/Units 15:16 15:16 WBC 5.45 (4.8-10.8) K/uL Hgb 8.4 L (14.0-18.0) g/dL Hct 26.4 L (42-52) % Plt Count 340 (130-400) K/uL Creatinine 1.70 H (0.6-1.4) mg/dl BMP 05/12/20 15:16 Sodium 137 Potassium 3.5 Chloride 101 Carbon Dioxide 27 BUN 18 Creatinine 1.70 H Glucose 123 H Calcium 9.4 Cardiac Enzymes 05/12/20 Range/Units 15:16 Troponin I < 0.015 (0-0.045) ng/ml Liver Function 05/12/20 Range/Units 15:16 Total Bilirubin 0.3 (0.2-1) mg/dl AST 12 L (15-37) U/L ALT 25 (12-78) U/L Alkaline Phosphatase 88 (45-117) U/L Albumin 3.8 (3.4-5.0) gm/dl Code Status & VTE Plan VTE Prophylaxis Plan VTE Prophylaxis will be ordered: Yes Supervising Physician Co-Signing Physician Notes Attending Addendum: care coordinated with JULIETH Pereira please refer to her notes for full details, I agree with her notes patient seen and examined, records reviewed by myself as well on exam, patient [] no other symptoms VS noted and reviewed oriented , not in distress, speaks in sentences with no effort nor accessory muscle use normal rate, regular rhythm, no murmurs clear breath sounds bilaterally non distended, soft, nontender no bipedal edema, erythema, warmth no neuro deficits WBC 5.4 Hg 8.4 Crea 1.7 ASSESSMENT AND PLAN 74 YEAR OLD MALE WITH HISTORY OF RECENT, RECURRENT (MARCH-APRIL 2020) LOWER GI BLEED FROM RADIATION PROCTITIS, RECTAL ULCERS, HISTORY OF PROSTATE CANCER S/P RADIATION THERAPY, DM 2, HTN, CKD 3, PRESENTING WITH RECTAL BLEEDING. LOWER GI BLEED possible sources: rectal ulcer, internal hemorrhoids had 3 colonoscopies from March-April 2020 for rectal bleeding, with cauterization of rectal ulcers evaluated by GI at the ER- conservative management for now with PO Sulfasalazi ne, Anusol NPO, IV fluids may require repeat flex sig over the weekend if with no improvement ANEMIA from recurrent rectal GI bleed Hg 8- unchanged from 04/20/2020 monitor q6h transfuse PRN for Hg < 7 or if symptomatic other diagnoses and plan of care as per JULIETH Pimentel MD (1) Anemia Anemia type: unspecified type Qualified Code(s): D64.9 - Anemia, unspecified
[2020-05-12] MEDS ORDERED: LORazepam 0.5 MG TAB PO PRN (18:31)
[2020-05-12] MEDS ORDERED: ACETAMINOPHEN 325 MG TAB PO PRN (18:31)
[2020-05-12] MEDS: SODIUM CHLORIDE 0.9% 1000ML 1,000 ML IV SCH (18:38)
[2020-05-12] MEDS: ANUSOL SUPP 1 EA PR SCH (20:27)
[2020-05-12] MEDS: VENLAFAXINE HCL 37.5 MG TAB PO SCH (20:28)
[2020-05-12] MEDS: sulfaSALAzine 500 MG TABLET PO SCH (20:28)
[2020-05-12] MEDS: ATORVASTATIN 40 MG TAB PO SCH (20:29)
[2020-05-12] MEDS: TAMSULOSIN HCL 0.4 MG CAP PO SCH (20:29)
[2020-05-12] MEDS: POLYETHYLENE (MIRALAX) 17 GM PACK PO SCH (20:30)
[2020-05-12] MEDS: AMLODIPINE BESYLATE 5 MG TAB PO SCH (20:31)
[2020-05-12 21:24] LABS: Hematocrit (blood only) 21.4 % (42-52); Hemoglobin 6.8 g/dL (14.0-18.0)
[2020-05-13 02:56] LABS: Hematocrit (blood only) 22.1 % (42-52); Hemoglobin 7.1 g/dL (14.0-18.0); Mean Corpuscular Hemoglobin 30.6 pg (25-34); Mean Corpuscular Hgb Conc 32.1 g/dL (32-36); Mean Corpuscular Volume 95.3 fL (80-100); Mean Platelet Volume 9.8 fL (7.4-10.4); Platelet Count 261 K/uL (130-400); RDW Coefficient of Variation 16.2 % (11.5-14.5); RDW Standard Deviation 56.7 fL (36.4-46.3); Red Blood Count 2.32 M/uL (4.7-6.1); White Blood Count 4.87 K/uL (4.8-10.8)
[2020-05-13 03:14] LABS: BUN Creatinine Ratio 11.6 (10-20); Creatinine Clr Calc Pharmacy 53.4 ml/min; Est GFR (African American) 50.4; Est GFR (Non-African American) 43.5; Potassium 3.8 mmol/L (3.5-5.1)
[2020-05-13] MEDS: SODIUM CHLORIDE 0.9% 1000ML 1,000 ML IV SCH ×3 (06:50→21:42)
[2020-05-13 07:04] LABS: Estimated Average Glucose 114 mg/dl; Hemoglobin A1C 5.6 % (4.5-5.6)
[2020-05-13] MEDS: LOSARTAN POTASSIUM 50 MG TAB PO SCH (08:37)
[2020-05-13] MEDS: PANTOprazole 40 MG TAB PO SCH (08:38)
[2020-05-13] MEDS: CETIRIZINE HCL 10 MG TABLET PO SCH (08:38)
[2020-05-13] MEDS: sulfaSALAzine 500 MG TABLET PO SCH ×2 (08:38→20:23)
[2020-05-13] MEDS: ANUSOL SUPP 1 EA PR SCH ×2 (08:38→20:24)
[2020-05-13] MEDS: POLYETHYLENE (MIRALAX) 17 GM PACK PO SCH ×2 (08:38→20:25)
[2020-05-13 09:15] LABS: Hematocrit (blood only) 22.2 % (42-52)
[2020-05-13] MEDS ORDERED: PHARMACY GLYCEMIC MGMT CONSULT PRN (09:30)
--- NOTE | 2020-05-13 09:58 | Pharmacy Report ---
Glycemic Control Consultation - Date of Service May 13, 2020 - Scope Scope: Glycemic Pharmacist consulted for glycemic control and to write orders per [facility] inpatient glycemic control protocol. - Objective Weight: 114.5 kg Accuchecks BSG (last 24hrs): 05/12/20 05/13/20 05/13/20 15:16 00:27 02:48 Glucose 123 H 137 H POC Glucose 160 H 05/13/20 06:12 Glucose POC Glucose 162 H Laboratory Data (last 24hrs): 05/12/20 05/13/20 15:16 02:48 Potassium 3.5 3.8 Carbon Dioxide 27 28 Anion Gap 9.0 6.0 Creatinine 1.70 H 1.55 H Est Cr Clr Drug Dosing 49.9 53.4 HbA1c: Hemoglobin A1c 5.6 % (4.5-5.6) 05/13/20 02:48 - Recent Pertinent Medications Outpatient Anti-diabetic Regimen: * Lantus 70 units SQ BID - recently reduced dose by patient d/t hypoglycemia at home * Novolog sliding scale * A1c = 5.6 % 05/13/20 Risk Factors for Insulin Resistance: * Diet: NPO - Assessment & Plan Assessment & Plan: ASSESSMENT: * 74-year-old male, PMH DM type II, CKD stage III, HTN, prostate cancer, admitted for rectal bleeding. NPO since midnight, flex sig today. * Patient managed on basal bolus at home, heavily basal and recently reduced dose by patient. * Blood sugar elevated at 1200 check to 207mg/dl, will give one time dose of Lantus reduced dose for NPO status and further dosing post op and as diet is resumed. PLAN FOR INPATIENT GLYCEMIC CONTROL: * Basal insulin * Lantus 50 units SQ x 1 dose today at 1200, then further dosing per [facility] * Bolus insulin * NovoLog per scale ACHS or Q6hrs while NPO * Goal Range: Low 110 mg/dL - High 140 mg/dL * Correction Factor: 15 mg/dL/unit * Nutritional / Prandial insulin per carb ratio of 1 unit per 5 grams CHO consumed * Please note that the plan above was derived based on current level of insulin resistance and hospital stress. These recommendations are appropriate for inpatient admission only. Plan of care upon discharge will need to be reassessed to avoid potential outpatient hypo/hyperglycemia. Thank you.
[2020-05-13] MEDS ORDERED: GLUCOSE 10 TABS/TUBE PO PRN (10:00)
[2020-05-13] MEDS ORDERED: GLUCAGON FOR INJ 1 MG VIAL IM PRN (10:00)
[2020-05-13] MEDS ORDERED: DEXTROSE 50% 50 ML SYRINGE IV PRN (10:00)
[2020-05-13] MEDS ORDERED: GLUCOSE 40% GEL 15 GM TUBE PO PRN (10:00)
[2020-05-13] MEDS ORDERED: CARBOHYDRATES FOR HYPOGLYCEMIA PO PRN (10:00)
[2020-05-13] MEDS ORDERED: SOD PHOSPHATE/SOD BIPHOSPHATE ENEMA 132 ML BTL PR STA (11:58)
[2020-05-13] MEDS: INSULIN ASPART 100 UNITS/ML 3 ML PEN SC SCH ×3 (12:05→19:37)
[2020-05-13] MEDS ORDERED: SODIUM CHLORIDE 0.9% 250 ML IV PRN (12:11)
--- NOTE | 2020-05-13 12:11 | Gastroenterology Progress Note ---
Date of Service May 13, 2020 Assessment & Plan Admission and Anticipated Discharge Date Admission Date: May 12, 2020 Subjective I have seen and examined the patient today, he feels well now. Was bleeding y esterday and Hgb dropped to 6.8 hence given PRBC, now up to 7, had 2 BM with brown stool. On exam abdomen is soft. Recommend: Flex sig today with anesthesia. Fleet enema now. Give one more PRBC. Results & Data ([facility]) Vital Signs (Past 12 Hours) Vital Signs Temp Pulse Pulse Resp BP BP Pulse Ox 05/13/20 12:01 37.0 C 77 18 129/72 96 05/13/20 07:48 68 05/13/20 07:32 36.8 C 63 20 128/62 97 05/13/20 03:26 82 05/13/20 03:06 36.6 C 73 18 110/63 96 05/13/20 02:02 36.9 C 78 18 143/69 H 95
[2020-05-13] MEDS ORDERED: INSULIN GLARGINE SOLOSTAR 100 UNITS/ML 3 ML PEN SC ONE (12:15)
--- NOTE | 2020-05-13 12:32 | Anesthesiology Consultation ---
Date of Service May 13, 2020 Assessment & Plan (1) Encounter for pre-operative examination: Chart Review Chart Review: Acceptable Risk for Surgery History Surgery Operation Date: 05/13/20 15:15 Proposed Procedures p Colonoscopy - Janie Tilley MD Height/Weight Height: 6 ft Weight: 114.5 kg Allergies Allergy/AdvReac Type Severity Reaction Status Date / Time avocado Allergy Severe "Throat Verified 05/12/20 15:21 closes up" cat dander Allergy Intermediate Sneezing Verified 05/12/20 15:21 Medications Home Medications Medication Instructions Recorded Confirmed Last Taken Glucosamine Complex-MSM 1 cap PO QPM 04/18/20 05/12/20 05/11/20 Lantus U-100 Insulin 70 unit SUBCUT AMPM 04/18/20 05/12/20 05/11/20 amlodipine [Norvasc] 10 mg PO QPM 04/18/20 05/12/20 05/11/20 atorvastatin [Lipitor] 40 mg PO QPM 04/18/20 05/12/20 05/11/20 cetirizine [Zyrtec] 5 mg PO DAILY 04/18/20 05/12/20 05/11/20 hydrochlorothiazide 25 mg PO QAM 04/18/20 05/12/20 05/11/20 insulin aspart U-100 [Novolog unit SUBCUT TIDM 04/18/20 04/18/20 05/11/20 Flexpen U-100 Insulin] lorazepam [Ativan] 0.5 mg PO Q6 PRN 04/18/20 05/12/20 05/05/20 multivitamin 1 tab PO DAILY 04/18/20 05/12/20 05/11/20 omega 6-fsy-rss-fish oil [Fish Oil] 1 cap PO BID 04/18/20 05/12/20 05/11/20 spironolactone [Aldactone] 25 mg PO QPM 04/18/20 05/12/20 05/11/20 tamsulosin [Flomax] 0.4 mg PO QPM 04/18/20 05/12/20 05/11/20 venlafaxine 37.5 mg PO QPM 04/18/20 05/12/20 05/11/20 vitamin E 600 unit PO 3XWK 04/18/20 05/12/20 05/11/20 acetaminophen [Tylenol Extra 500 mg PO Q8 PRN 05/12/20 05/12/20 05/11/20 Strength] losartan 100 mg PO DAILY 05/12/20 05/12/20 Unknown pantoprazole 20 mg PO DAILY 05/12/20 05/12/20 Unknown polyethylene glycol 3350 [Miralax] 17 g PO BID 05/12/20 05/12/20 05/11/20 sucralfate See Rx Instructions .ROUTE .COMPLEX 05/12/20 05/12/20 Unknown sulfasalazine 1,000 mg PO BID 05/12/20 05/12/20 05/11/20 Active Medications Generic Name Dose Route Start Last Admin Trade Name Freq PRN Reason Stop Dose Admin Amlodipine Besylate 10 mg 05/12/20 21:00 05/12/20 20:31 Amlodipine Besylate 5 Mg Tab PO 06/11/20 20:59 10 mg QPM MAMADOU Administration Atorvastatin Calcium 40 mg 05/12/20 21:00 05/12/20 20:29 Atorvastatin 40 Mg Tab PO 06/11/20 20:59 40 mg QPM MAMADOU Administration Cetirizine HCl 5 mg 05/13/20 09:00 05/13/20 08:38 Cetirizine Hcl 10 Mg Tablet PO 06/12/20 08:59 5 mg DAILY MAMADOU Administration Sodium Chloride 1,000 mls @ 100 mls/hr 05/12/20 18:31 05/13/20 06:50 Nss 1000ml IV 06/11/20 18:30 100 mls/hr .Q10H MAMADOU Administration Lorazepam 0.5 mg 05/12/20 18:31 05/12/20 20:31 Lorazepam 0.5 Mg Tab PO 06/11/20 18:30 0.5 mg Q6 PRN Administration Anxiety Losartan Potassium 100 mg 05/13/20 09:00 05/13/20 08:37 Losartan Potassium 50 Mg Tab PO 06/12/20 08:59 100 mg DAILY MAMADOU Administration Pantoprazole Sodium 40 mg 05/13/20 09:00 05/13/20 08:38 Pantoprazole 40 Mg Tab PO 06/12/20 08:59 40 mg DAILY MAMADOU Administration Phenylephrine HCl 1 ea 05/12/20 21:00 05/13/20 08:38 Anusol Supp 1 Ea AL 06/11/20 20:59 1 ea BID MAMADOU Administration Polyethylene Glycol 17 gm 05/12/20 21:00 05/13/20 08:38 Polyethylene (Miralax) 17 Gm Pack PO 06/11/20 20:59 17 gm BID MAMADOU Administration Sulfasalazine 1,000 mg 05/12/20 21:00 05/13/20 08:38 Sulfasalazine 500 Mg Tablet PO 06/11/20 20:59 1,000 mg BID MAMADOU Administration Tamsulosin HCl 0.4 mg 05/12/20 21:00 05/12/20 20:29 Tamsulosin Hcl 0.4 Mg Cap PO 06/11/20 20:59 0.4 mg QPM MAMADOU Administration Venlafaxine HCl 37.5 mg 05/12/20 21:00 05/12/20 20:28 Venlafaxine Hcl 37.5 Mg Tab PO 06/11/20 20:59 37.5 mg QPM MAMADOU Administration Past Medical History Medical History (Updated 05/13/20 @ 12:32 by Elder Brown MD) Anemia CKD (chronic kidney disease), stage III DM type 2 (diabetes mellitus, type 2) HTN (hypertension) Nephrolithiasis Obesity CARLEY (obstructive sleep apnea) Prostate cancer (11/14/17) Past Family History Family History Other Adopted Past Surgical History Surgical History H/O sinus surgery History of carpal tunnel surgery History of tonsillectomy Social History Smoking Status: Never smoker Hx Alcohol Use: Yes Alcohol type: beer alcohol intake frequency: holidays/special occasions only Hx Substance Use: No Physical Exam Vital Signs Last Vital Signs Temp 37.0 C 05/13/20 12:01 Pulse 77 05/13/20 12:01 Resp 18 05/13/20 12:01 BP 129/72 05/13/20 12:01 Pulse Ox 96 05/13/20 12:01 Testing Laboratory Results 05/13/20 09:00 05/13/20 02:48 PT 11.2 Seconds (9.0-12.0) 05/12/20 15:16 INR 1.1 (0.9-1.1) 05/12/20 15:16 APTT 26.5 Seconds (21.0-31.0) 05/12/20 15:16 Hemoglobin A1c 5.6 % (4.5-5.6) 05/13/20 02:48 Blood Type A Positive 05/12/20 15:16 Antibody Screen NEGATIVE 05/12/20 15:16 05/13/20 05/13/20 05/13/20 12:02 06:12 00:27 POC Glucose 207 H 162 H 160 H
[2020-05-13] MEDS ORDERED: SOD PHOSPHATE/SOD BIPHOSPHATE ENEMA 132 ML BTL PR ONE (14:14)
--- NOTE | 2020-05-13 15:36 | History & Physical Bridge Note ---
Date of Service May 13, 2020 History & Physical Bridge Note I have examined the patient, reviewed the History & Physical and in the interval since the performance of the History & Physical I have noted the following changes of clinical significance: no changes noted
[2020-05-13] MEDS ORDERED: fentaNYL citrate 100 MCG/2 ML VIAL IV PRN (15:46)
[2020-05-13] MEDS ORDERED: ONDANSETRON INJ 2 MG/ML 2 ML VIAL IV PRN (15:46)
[2020-05-13] MEDS ORDERED: ATROPINE SULFATE 0.1 MG/ML 10ML SYR IV PRN (15:46)
[2020-05-13] MEDS ORDERED: PROPOFOL IV EMULSION 10 MG/ML 20 ML VIAL IV ONE ×2 (16:51)
[2020-05-13] MEDS ORDERED: LIDOCAINE HCL 2% 2 ML VIAL/AMP(20MG/ML) INFIL ONE (16:51)
--- NOTE | 2020-05-13 17:26 | GI REPORT ---
Patient Name: Irving Martinez Procedure Date: 05/13/2020 3:57 PM Date of : 1945 Admit Type: Inpatient Age: 74 Gender: Male Attending MD: Janie Tilley MD Procedure: Flexible Sigmoidoscopy Providers: Janie Tilley MD Referring MD: Taz Oseguera Md Indications: Rectal hemorrhage Medicines: Propofol per Anesthesia Complications: No immediate complications. Estimated Blood Loss: Estimated blood loss: none. Procedure: Pre-Anesthesia Assessment: - Prior to the procedure, a History and Physical was performed, and patient medications, allergies and sensitivities were reviewed. The patient's tolerance of previous anesthesia was reviewed. - The risks and benefits of the procedure and the sedation options and risks were discussed with the patient. All questions were answered and informed consent was obtained. - Patient identification and proposed procedure were verified prior to the procedure by the physician and the nurse. The procedure was verified in the procedure room. - Pre-procedure physical examination revealed no contraindications to sedation. After obtaining informed consent, the endoscope was passed under direct vision. Throughout the procedure, the patient's blood pressure, pulse, and oxygen saturations were monitored continuously. The Endoscope was introduced through the anus and advanced to the sigmoid colon. The flexible sigmoidoscopy was accomplished without difficulty. The patient tolerated the procedure well. The quality of the bowel preparation was good. Findings: The perianal and digital rectal examinations were normal. A single (solitary) twenty mm ulcer was found in the rectum. No bleeding was present. There was a visible vessel on the side of the ulcer. Coagulation for hemostasis using bipolar probe was successful. Impression: - A single ulcer in the rectum. Treated with bipolar cautery. Recommendation: - Return patient to [facility] for [facility] care. - Use Canasa 1000 mg suppository 1 per rectum BID. - Continue Metamucil and Miralax. - Hold Carafate enema to avoid rectal trauma. Janie Tilley MD 05/13/2020 5:25:33 PM This report has been signed electronically. Note Initiated On: 05/13/2020 3:57 PM Number of Addenda: 0 I attest to the content of the Intraoperative Record and orders documented therein, exceptions below {[id number]}
--- NOTE | 2020-05-13 17:27 | Anesthesiology Progress Note ---
Date of Service May 13, 2020 Anesthesia Post Procedure Vital Signs Vital Signs: Temp Pulse Pulse Pulse Resp BP BP 05/13/20 17:15 36.7 C 69 16 162/86 H 05/13/20 17:05 36.7 C 73 14 140/79 05/13/20 16:58 73 12 140/79 05/13/20 15:11 36.7 C 73 20 154/76 H 05/13/20 14:45 36.7 C 73 20 154/76 H 05/13/20 14:15 36.8 C 71 18 112/66 05/13/20 13:57 37 C 78 18 134/67 05/13/20 13:38 36.8 C 74 18 127/73 05/13/20 12:01 37.0 C 77 18 129/72 05/13/20 07:48 68 05/13/20 07:32 36.8 C 63 20 128/62 05/13/20 03:26 82 05/13/20 03:06 36.6 C 73 18 110/63 05/13/20 02:02 36.9 C 78 18 143/69 H 05/12/20 23:36 37 C 80 18 122/69 05/12/20 23:08 37.1 C 82 18 148/72 H 05/12/20 22:51 37 C 78 18 132/74 05/12/20 22:31 37.3 C 82 18 143/73 H 05/12/20 18:53 37 C 83 20 124/75 05/12/20 18:50 84 05/12/20 18:31 37 C 83 20 124/75 05/12/20 17:30 81 19 163/79 H Pulse Ox 05/13/20 17:15 98 05/13/20 17:05 98 05/13/20 16:58 95 05/13/20 15:11 96 05/13/20 14:45 96 05/13/20 14:15 95 05/13/20 13:57 95 05/13/20 13:38 05/13/20 12:01 96 05/13/20 07:48 05/13/20 07:32 97 05/13/20 03:26 05/13/20 03:06 96 05/13/20 02:02 95 05/12/20 23:36 94 08/28/20 23:08 96 05/12/20 22:51 98 05/12/20 22:31 97 05/12/20 18:53 100 05/12/20 18:50 05/12/20 18:31 100 05/12/20 17:30 95 Transfer of Care Handoff Completed per policy Notes Mental Status: alert / awake / arousable Patient Amnestic to Procedure: Yes Nausea / Vomiting: adequately controlled Pain: adequately controlled Airway Patency, RR, SpO2: stable & adequate BP & HR: stable & adequate Hydration State: stable & adequate Anesthetic Complications: no major complications apparent
--- NOTE | 2020-05-13 17:28 | Hospitalist Progress Note ---
Date of Service May 13, 2020 Assessment & Plan (1) Lower GI bleed: Rectal bleeding Symptomatic anemia History of radiation proctitis, polyps, Rectal ulceration, Hemorrhoids S/P 2 units PRBCs On IV fluids Appreciate GI Input Plan for extended sigmoidoscopy today Continue PPI Monitor H&H, transfuse PRBCs as needed On Anusol, sulfasalazine as per GI (2) Anemia: Had Iron infusion on 05/05 Transfuse PRBCs PRN Management as above (3) HTN (hypertension): BP slightly elevated continue losartan, Amlodipine Hold HCTZ, spironolactone for now Monitor BP (4) CKD (chronic kidney disease), stage III: Baseline Cr: ~ High 1's Monitor renal functions Avoid nephrotoxic agents when able (5) CARLEY (obstructive sleep apnea): CPAP as per home settings (6) DVT prophylaxis: SCDs Re: Rectal bleeding Code Status Full Code Disposition Expect to discharge home when stable Admission and Anticipated Discharge Date Admission Date: May 12, 2020 Subjective Patient is seen and examined at bedside Feels a lot better Had 2 brown BMs this morning Currently no active bleeding Hemoglobin 7.0 Plan to give 1 unit PRBC Discussed with gastroenterology today Plan for flexible sigmoidoscopy today Review of Systems Review of Systems: All systems reviewed & are unremarkable except as noted in HPI & below Physical Exam Physical Exam: Physical Exam: Vitals signs as noted above General Appearance:Moderately built and nourished, no apparent distress Head: normocephalic, Atraumatic Eyes: normal inspection, EOMI, +Pallor Neck: supple, Trachea midline Respiratory/Chest: Normal breath sounds, CTA Cardiovascular: S1, S2, No murmur Abdomen/GI:Soft, Non tender, Bowel sounds present Extremities/Musculoskelatal:normal inspection, no edema Neurologic/Psych:AAOX3, grossly no focal neurological deficits Skin: normal color, warm Results & Data Results & Data ([facility]) Vital Signs (Past 12 Hours) Vital Signs Temp Pulse Pulse Pulse Resp BP BP 05/13/20 16:58 73 12 140/79 05/13/20 15:11 36.7 C 73 20 154/76 H 05/13/20 14:45 36.7 C 73 20 154/76 H 05/13/20 14:15 36.8 C 71 18 112/66 05/13/20 13:57 37 C 78 18 134/67 05/13/20 13:38 36.8 C 74 18 127/73 05/13/20 12:01 37.0 C 77 18 129/72 05/13/20 07:48 68 05/13/20 07:32 36.8 C 63 20 128/62 Pulse Ox 05/13/20 16:58 95 05/13/20 15:11 96 05/13/20 14:45 96 05/13/20 14:15 95 05/13/20 13:57 95 05/13/20 13:38 05/13/20 12:01 96 05/13/20 07:48 05/13/20 07:32 97 Laboratory Results Short CBC 05/12/20 05/13/20 05/13/20 Range/Units 20:46 02:48 09:00 WBC 4.87 (4.8-10.8) K/uL Hgb 6.8 L* 7.1 L 7.0 L (14.0-18.0) g/dL Hct 21.4 L 22.1 L 22.2 L (42-52) % Plt Count 261 (130-400) K/uL BMP 05/13/20 02:48 Sodium 139 Potassium 3.8 Chloride 105 Carbon Dioxide 28 BUN 18 Creatinine 1.55 H Glucose 137 H Calcium 8.0 L (1) Anemia Anemia type: unspecified type Qualified Code(s): D64.9 - Anemia, unspecified
[2020-05-13 18:26] LABS: Hematocrit (blood only) 25.9 % (42-52); Hemoglobin 8.5 g/dL (14.0-18.0)
[2020-05-13] MEDS: ATORVASTATIN 40 MG TAB PO SCH (20:23)
[2020-05-13] MEDS: VENLAFAXINE HCL 37.5 MG TAB PO SCH (20:23)
[2020-05-13] MEDS: TAMSULOSIN HCL 0.4 MG CAP PO SCH (20:23)
[2020-05-13] MEDS: AMLODIPINE BESYLATE 5 MG TAB PO SCH (20:24)
[2020-05-13] MEDS ORDERED: Nursing to Pharmacy Communication SCH (21:30)
[2020-05-13 22:06] LABS: Hematocrit (blood only) 25.2 % (42-52); Hemoglobin 8.2 g/dL (14.0-18.0)
[2020-05-14 06:06] LABS: Hematocrit (blood only) 23.9 % (42-52); Hemoglobin 7.8 g/dL (14.0-18.0)
[2020-05-14 06:37] LABS: Creatinine Clr Calc Pharmacy 62.7 ml/min; Est GFR (African American) 59.5; Est GFR (Non-African American) 51.4
[2020-05-14] MEDS: INSULIN ASPART 100 UNITS/ML 3 ML PEN SC SCH ×2 (07:57→11:50)
[2020-05-14] MEDS: CETIRIZINE HCL 10 MG TABLET PO SCH (07:59)
[2020-05-14] MEDS: LOSARTAN POTASSIUM 50 MG TAB PO SCH (07:59)
[2020-05-14] MEDS: PANTOprazole 40 MG TAB PO SCH (07:59)
[2020-05-14] MEDS: ANUSOL SUPP 1 EA PR SCH (07:59)
[2020-05-14] MEDS: POLYETHYLENE (MIRALAX) 17 GM PACK PO SCH (08:00)
[2020-05-14] MEDS: sulfaSALAzine 500 MG TABLET PO SCH (08:00)
[2020-05-14] MEDS ORDERED: PSYLLIUM 58.6% POWDER PACKET PO SCH (09:00)
[2020-05-14] MEDS ORDERED: INSULIN GLARGINE SOLOSTAR 100 UNITS/ML 3 ML PEN SC SCH (09:00)
[2020-05-14 11:07] VITALS: TEMP 98.6; O2SAT 96
[2020-05-14 11:42] VITALS: BP 116/66; PULSE 65
--- NOTE | 2020-05-14 12:01 | Hospitalist Progress Note ---
Date of Service May 14, 2020 Assessment & Plan (1) Lower GI bleed: Rectal bleeding Symptomatic anemia History of radiation proctitis, polyps, Rectal ulceration, Hemorrhoids S/P 2 units PRBCs Received IV fluids Appreciate GI Input F/P Sigmoidoscopy: Single ulcer in the rectum. Treated with Bipolar Cautery. Continue PPI Monitor H&H, transfuse PRBCs as needed Continue sulfasalazine, Metamucil and MiraLAX Plan to be started Canasa 1000mg suppository 1 per rectum twice daily as outpat ient--GI plans to provide prescription Plan to discontinue Carafate enema on discharge to avoid rectal trauma. Needs follow-up with gastroenterology upon discharge (2) Anemia: Had Iron infusion on 05/05 Transfuse PRBCs PRN Management as above (3) HTN (hypertension): BP stable continue losartan, Amlodipine Resume HCTZ, spironolactone Monitor BP (4) CKD (chronic kidney disease), stage III: Baseline Cr: ~ High 1's Monitor renal functions Avoid nephrotoxic agents when able (5) CARLEY (obstructive sleep apnea): CPAP as per home settings (6) DVT prophylaxis: SCDs Re: Rectal bleeding Code Status Full Code Disposition: Plan to discharge home today Admission and Anticipated Discharge Date Admission Date: May 13, 2020 Subjective Patient is seen and examined at bedside Doing well this morning Denies any recurrence of rectal bleeding Discussed with gastroenterology today Eager to get discharged Denies any chest pain, shortness of breath, dizziness, nausea, abdominal pain Family at bedside Offers no other complaints Review of Systems Review of Systems: All systems reviewed & are unremarkable except as noted in HPI & below Physical Exam Physical Exam: Physical Exam: Vitals signs as noted above General Appearance:Moderately built and nourished, no apparent distress Head: normocephalic, Atraumatic Eyes: normal inspection, EOMI, +Pallor Neck: supple, Trachea midline Respiratory/Chest: Normal breath sounds, CTA Cardiovascular: S1, S2, No murmur Abdomen/GI:Soft, Non tender, Bowel sounds present Extremities/Musculoskelatal:normal inspection, no edema Neurologic/Psych:AAOX3, grossly no focal neurological deficits Skin: normal color, warm Results & Data Results & Data ([facility]) Vital Signs (Past 12 Hours) Vital Signs Temp Pulse Pulse Pulse Resp BP BP 05/14/20 11:41 37.0 C 77 65 20 116/66 129/72 05/14/20 11:06 37.0 C 77 20 129/72 05/14/20 07:35 36.8 C 66 22 116/66 05/14/20 03:43 36.8 C 65 18 123/56 L 05/14/20 02:18 77 Pulse Ox 05/14/20 11:41 96 05/14/20 11:06 96 05/14/20 07:35 97 05/14/20 03:43 95 05/14/20 02:18 Laboratory Results Short CBC 05/13/20 05/13/20 05/14/20 Range/Units 18:16 21:41 05:25 Hgb 8.5 L 8.2 L 7.8 L (14.0-18.0) g/dL Hct 25.9 L 25.2 L 23.9 L (42-52) % BMP 05/14/20 05:25 Creatinine 1.35 (1) Anemia Anemia type: unspecified type Qualified Code(s): D64.9 - Anemia, unspecified
--- NOTE | 2020-05-14 12:16 | Discharge Summary ---
Date of Service May 14, 2020 Admission HPI Per Admitting Provider 74-year-old male with PMH DM type II, CKD stage III, HTN, prostate cancer, and other problems listed below who presents the ED for evaluation of rectal bleeding. Recent GI history includes, (per GI consult note): He had EGD/colonoscopy by Dr. Tilley on 03/28/2020. Found to have hiatal hernia, colon polyps (adenomatous), internal hemorrhoids, radiation proctitis treated w APC. He was admitted early April w rectal bleeding. Repeat colonoscopy by Dr. Yeh on 04/23/2020 shower large rectal ulcer, treated w APC, IC valve post polypectomy ulcer, healing. F/U Flex sigmoidscopy done recently on 05/02/[address] Tilley which showed solitary rectal ulcer treated w bipolar cautery.Since then he's been taking Miralax, Carafate enema, Sulfasalazine. Hemoglobin on 05/03 was 7.1, patient had iron infusion on 05/05. Patient has not had any blood transfusions. Patient reports that today around noon, he was about to take his sucralfate enema and he developed bright red bleeding per rectum. Patient reports about 5 episodes since that time. He has had associated weakness, lightheadedness, shortness of breath. Has some abdominal cramping before having a bowel movement. Denies nausea or vomiting. No chest pain or syncopal event. Denies any other recent illnesses, fevers, chills. No cough or sputum production. Denies any urinary symptoms. In the ED, rectal exam revealed bright red blood. Hgb is 8.4. Patient has remained hemodynamically stable. GI has evaluated the patient in the ED and recommends observation overnight for hemoglobin trending. Patient received IVF. Admission Exam Per Admitting Provider Physical Exam Constitutional: WD/WN, vitals as above Eyes: PERRL, conjunctivae normal, anicteric sclerae ENMT: external ear and nose normal, oropharynx normal Respiratory: normal respiratory effort, lungs clear to auscultation Cardiovascular: Rate/Rhythm: regular rate and regular rhythm Vessels: normal peripheral pulses Extremities: no edema Gastrointestinal (Abdomen): normal bowel sounds, soft, nontender, no hepatosplenomegaly Musculoskeletal: no cyanosis or clubbing, extremities motor strength 5/5 Skin: no rashes, warm and dry + pallor Neurologic: PERRL, EOMI, accommodation nl, no face palsy, no dysarthria Psychiatric: A+Ox3, euthymic affect Principal Diagnosis Rectal bleeding Symptomatic anemia Discharge Data Allergies Allergy/AdvReac Type Severity Reaction Status Date / Time avocado Allergy Severe "Throat Verified 05/12/20 15:21 closes up" cat dander Allergy Intermediate Sneezing Verified 05/12/20 15:21 Consultations 05/12/20 16:21 ED Decision to Admit Stat 05/12/20 18:31 Consult Gastroenterology Routine Procedures Performed Operation Date: 05/13/20 15:15 Actual Procedures p Sigmoidoscopy with Cautery - Janie Tilley MD Sigmoidoscopy: Findings: The perianal and digital rectal examinations were normal. A single (solitary) twenty mm ulcer was found in the rectum. No bleeding was present. There was a visible vessel on the side of the ulcer. Coagulation for hemostasis using bipolar probe was successful. Impression: - A single ulcer in the rectum. Treated with bipolar cautery. Recommendation: - [facility]. - Use Canasa 1000 mg suppository 1 per rectum BID. - Continue Metamucil and Miralax. - Hold Carafate enema to avoid rectal trauma. Hospital Course (1) Lower GI bleed: Rectal bleeding Symptomatic anemia History of radiation proctitis, polyps, Rectal ulceration, Hemorrhoids S/P 2 units PRBCs Received IV fluids Appreciate GI Input F/P Sigmoidoscopy: Single ulcer in the rectum. Treated with Bipolar Cautery. Continue PPI Monitor H&H, transfuse PRBCs as needed Continue sulfasalazine, Metamucil and MiraLAX Plan to be started Canasa 1000mg suppository 1 per rectum twice daily as outpatient--GI plans to provide prescription Plan to discontinue Carafate enema on discharge to avoid rectal trauma. Needs follow-up with gastroenterology upon discharge (2) Anemia: Had Iron infusion on 05/05 Transfuse PRBCs PRN Management as above (3) HTN (hypertension): BP stable continue losartan, Amlodipine Resume HCTZ, spironolactone Monitor BP (4) CKD (chronic kidney disease), stage III: Baseline Cr: ~ High 1's Monitor renal functions Avoid nephrotoxic agents when able (5) CARLEY (obstructive sleep apnea): CPAP as per home settings (6) DVT prophylaxis: SCDs Re: Rectal bleeding Code Status Full Code Disposition: Plan to discharge home today Total Time Total Time Spent Total Time Spent (In Minutes): 40 minutes Total Time Includes: Examination of the Patient, Discharge Planning, Medication Reconciliation, Communication With Other Providers and Other Discharge Plan Discharge Items Patient Disposition: Home - Self-Care Reason For Visit: LOWER GI BLEED Discharge Diagnosis: Rectal bleeding Symptomatic anemia Condition on Discharge: Good Activity: Resume your previous activity Exercise/Sports: Gradually increase as tolerated Non-emergency contact: Primary Care Provider and [employer] Specialist Call non-emergency contact if: you have any medication questions, your symptoms worsen, your pain is not controlled, your pain is worsening, your pain is unusual for you, your pain is concerning for you and you have a fever Follow-up/Referrals: Elder Mirza MD [Primary Care Provider] - Diet: Carb Consistent or DM2 and Low Fiber Addtl Attending Provider Instructions: Follow up with your PCP in 1 week as advised Follow up with your [employer] C[employer] Specialist Dr. Tilley in 2 weeks as advised You will be started on Canasa 1000 mg suppository 1 per rectum twice a day by your [employer] Specialist. Please call your doctor for prescription. Seek immediate medical attention if your symptoms reoccur or worsen Pending Studies at Discharge: No Stand-Alone Forms: My [employer], Smoking Cessation Medications and DC Order Prescriptions: New pantoprazole 40 mg Tablet,Delayed Release (Dr/Ec) 40 mg PO DAILY Qty: 30 RF: 0 Metamucil (with sugar) 3.4 gram Powder In Packet 1 pkg PO QAM Qty: 30 RF: 0 Continued insulin aspart U-100 [Novolog Flexpen U-100 Insulin] 100 unit/mL (3 mL) insulin pen subcut TIDM RF: 0 multivitamin Tablet 1 tab PO DAILY RF: 0 atorvastatin [Lipitor] 40 mg tablet 40 mg PO QPM RF: 0 Lantus U-100 Insulin 100 unit/mL solution 70 unit SUBCUT AMPM RF: 0 cetirizine [Zyrtec] 10 mg Tablet 5 mg PO DAILY RF: 0 vitamin E 600 unit Capsule 600 unit PO 3XWK RF: 0 spironolactone [Aldactone] 25 mg tablet 25 mg PO QPM RF: 0 lorazepam [Ativan] 0.5 mg Tablet 0.5 mg PO Q6 PRN (Reason: Anxiety) RF: 0 tamsulosin [Flomax] 0.4 mg capsule 0.4 mg PO QPM RF: 0 amlodipine [Norvasc] 10 mg tablet 10 mg PO QPM RF: 0 venlafaxine 37.5 mg tablet 37.5 mg PO QPM RF: 0 hydrochlorothiazide 25 mg tablet 25 mg PO QAM RF: 0 Glucosamine Complex-MSM Capsule 1 cap PO QPM RF: 0 omega [id number] oil [Fish Oil] 1,000 mg (120 mg-180 mg) Capsule 1 cap PO BID RF: 0 sulfasalazine 500 mg tablet 1,000 mg PO BID RF: 0 acetaminophen [Tylenol Extra Strength] 500 mg Tablet 500 mg PO Q8 PRN (Reason: Pain) RF: 0 polyethylene glycol 3350 [Miralax] 17 gram/dose Powder 17 g PO BID RF: 0 losartan 100 mg tablet 100 mg PO DAILY RF: 0 Discontinued sucralfate 1 gram tablet See Rx Instructions .ROUTE .COMPLEX RF: 0 pantoprazole 20 mg tablet,delayed release (DR/EC) 20 mg PO DAILY RF: 0 Discharge Orders: Discharge Order (Routine); Ordered 05/14/20 Ordered By: Taz Oseguera Admission Data Admit Date/Time: 05/13/20 18:53 Attending Provider: Taz Oseguera Admit Provider: Demetri Pimentel Primary Care Provider: Elder Mirza Other Providers: Demetri Pimentel ; Janie Tilley Other Interventions: Discharge Summary Assessment (RN) Last Done: 05/14/20 11:41
== END 2020-05-14 12:28 | disposition home or self-care (01) | DRG 395 ==
LOC: ED 13:53 → 2W 13:53 → SUATTDRO 16:21 → 2W 17:35